=== PATIENT | female | born 1990 | race American Indian/Alaskan Native ===

== ENCOUNTER 2016-09-20 20:46 | Emergency (ER) | payer MEDICAID ==
[2016-09-20 21:00] VITALS: BP 116/71
[2016-09-20] MEDS ORDERED: Sodium Chloride 0.9% 10 ML Syringe FLUSH PRN (21:15)
[2016-09-20] MEDS ORDERED: Ketorolac 30 MG/ML SDV IM ONE (21:16)
--- NOTE | 2016-09-20 21:22 | EDM.PDOC ---
ED HPI GENERAL MEDICAL PROBLEM - General Chief Complaint: General Stated Complaint: RIB PAIN Time Seen by Provider: 09/20/16 21:00 Source of Information: Reports: Patient History Limitations: Reports: No Limitations - History of Present Illness INITIAL COMMENTS - FREE TEXT/NARRATIVE: Ludy is a 25 year old female who presents to the ED today with c/o bilateral rib pain of sudden onset earlier today with associated sob. Patient denies any cough/URI symptoms. Patient denies any abdominal pain, nausea/vomiting/diarrhea /dysuria/injury. Patient denies any hx of blood clots. Patient does smoke 1/2 ppd and does have an IUD. Patient reports that her pain today is similar to when she was as well as back in March when she had her gallbladder removed. Patient has not had anything for pain. 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: - Infectious Disease History Infectious Disease History: Reports: Chicken Pox - Past Surgical History GI Surgical History: Reports: Cholecystectomy Social & Family History - Family History Family Medical History: Unobtainable Cardiac: Reports: Bypass, Heart Failure, [place], Stent Psychiatric: Reports: Bipolar, Depression, Suicide Attempt - Tobacco Use Smoking Status *Q: Light Tobacco Smoker Years of Tobacco use: 8 Packs/Tins Daily: 0.5 Used Tobacco, but Quit: No Month Tobacco Last Used: August Second Hand Smoke Exposure: No - Caffeine Use Caffeine Use: Reports: Energy Drinks, Soda - Alcohol Use Days Per Week of Alcohol Use: 0 - Recreational Drug Use Recreational Drug Use: No - Living Situation & Occupation Living situation: Reports: Single Occupation: Employed ED ROS GENERAL - Review of Systems Review Of Systems: ROS reveals no pertinent complaints other than HPI. ED EXAM, GENERAL - Physical Exam Exam: See Below Exam Limited By: No Limitations General Appearance: Alert, WD/WN, Mild Distress Head: Atraumatic Neck: Normal Inspection, Full Range of Motion Respiratory/Chest: Lungs Clear, No Accessory Muscle Use, Other (bilateral anterior/side lower rib tenderness. Shallow respiration secondary to pain) Cardiovascular: Normal Peripheral Pulses, Regular Rate, Rhythm, No Murmur GI/Abdominal: Normal Bowel Sounds, Soft, Non-Tender Extremities: Normal Inspection Neurological: Alert, Oriented, CN II-XII Intact Psychiatric: Normal Affect, Normal Mood Skin Exam: Warm, Dry Lymphatic: No Adenopathy Course - Vital Signs Text/Narrative:: Ludy is an otherwise healthy 25 year old female who presents to the ED today with c/o bilateral lower anterior and side rib pain. Please refer to HPI and focused exam. Patient's presentation is consistent with inflammatory process. Patient given IM Toradol with good relief. Blood work including CBC, CMP, D Dimer are all within normal limits. CXR negative for any acute findings. Blood HCG negative. Patient states she is feeling much better after medication here. Findings today consistent with acute costochondritis. I discussed with patient, will start her on a 7 day course of Naproxen, discussed avoiding any other NSAIDS while she is on this. Follow up with PCP in one week. Return to the ED with any complications or worsening symptoms. Patient verbalizes understanding and is agreeable to plan of care. questions answered prior to discharge. Patient dishcarged in stable condition. Last Recorded V/S: Last Vital Signs Temp 36.6 C 09/20/16 21:03 Pulse 69 09/20/16 21:03 Resp 16 09/20/16 21:03 BP 116/71 09/20/16 21:03 Pulse Ox 99 09/20/16 21:03 - Orders/Labs/Meds Orders: Active Orders 24 hr Category Date Time Status Peripheral IV Care [RC] . DIRECTED Care 09/20/16 21:15 Active Chest 2V [CR] Stat Exams 09/20/16 21:58 Taken Sodium Chloride 0.9% [Saline Flush] Med 09/20/16 21:15 Active 10 ml FLUSH ASDIRECTED PRN Peripheral IV Insertion Pediatric [OM.PC] Routine Oth 09/20/16 21:15 Ordered Medication Orders Sodium Chloride (Saline Flush) 10 ml FLUSH ASDIRECTED PRN PRN Reason: Keep Vein Open Labs: Laboratory Tests 09/20/16 09/20/16 09/20/16 Range/Units 21:26 21:26 21:26 WBC 6.4 (4.5-11.0) K/uL RBC 4.39 (3.30-5.50) M/uL Hgb 13.4 D (12.0-15.0) g/dL Hct 39.9 (36.0-48.0) % MCV 91 (80-98) fL MCH 31 (27-31) pg MCHC 34 (32-36) % Plt Count 182 (150-400) K/uL Neut % (Auto) 59 (36-66) % Lymph % (Auto) 24 (24-44) % [place] % (Auto) 10 H (2-6) % Eos % (Auto) 6 H (2-4) % Baso % (Auto) 1 (0-1) % D-Dimer, Quantitative 339 (0.0-400.0) ng/mL Sodium 138 L (140-148) mmol/L Potassium 3.8 (3.6-5.2) mmol/L Chloride 105 (100-108) mmol/L Carbon Dioxide 26 (21-32) mmol/L Anion Gap 10.8 (5.0-14.0) mmol/L BUN 17 (7-18) mg/dL Creatinine 1.0 (0.6-1.0) mg/dL Est Cr Clr Drug Dosing 103.26 mL/min Estimated GFR (MDRD) > 60 (>60) Glucose 89 (74-106) mg/dL Calcium 8.0 L (8.5-10.1) mg/dL Total Bilirubin 0.2 D (0.2-1.0) mg/dL AST 12 L (15-37) U/L ALT 15 (12-78) U/L Alkaline Phosphatase 100 (46-116) U/L Total Protein 7.8 (6.4-8.2) g/dL Albumin 3.8 (3.4-5.0) g/dL Globulin 4.0 H (2.3-3.5) g/dL Albumin/Globulin Ratio 1.0 L (1.2-2.2) HCG, Qual 09/20/16 Range/Units 21:26 WBC (4.5-11.0) K/uL RBC (3.30-5.50) M/uL Hgb (12.0-15.0) g/dL Hct (36.0-48.0) % MCV (80-98) fL MCH (27-31) pg MCHC (32-36) % Plt Count (150-400) K/uL Neut % (Auto) (36-66) % Lymph % (Auto) (24-44) % [place] % (Auto) (2-6) % Eos % (Auto) (2-4) % Baso % (Auto) (0-1) % D-Dimer, Quantitative (0.0-400.0) ng/mL Sodium (140-148) mmol/L Potassium (3.6-5.2) mmol/L Chloride (100-108) mmol/L Carbon Dioxide (21-32) mmol/L Anion Gap (5.0-14.0) mmol/L BUN (7-18) mg/dL Creatinine (0.6-1.0) mg/dL Est Cr Clr Drug Dosing mL/min Estimated GFR (MDRD) (>60) Glucose (74-106) mg/dL Calcium (8.5-10.1) mg/dL Total Bilirubin (0.2-1.0) mg/dL AST (15-37) U/L ALT (12-78) U/L Alkaline Phosphatase (46-116) U/L Total Protein (6.4-8.2) g/dL Albumin (3.4-5.0) g/dL Globulin (2.3-3.5) g/dL Albumin/Globulin Ratio (1.2-2.2) HCG, Qual Negative Meds: Medications Generic Name Dose Route Start Last Admin Trade Name Freq PRN Reason Stop Dose Admin Sodium Chloride 10 ml 09/20/16 21:15 Saline Flush FLUSH ASDIRECTED PRN Keep Vein Open Discontinued Medications Generic Name Dose Route Start Last Admin Trade Name Freq PRN Reason Stop Dose Admin Ketorolac Tromethamine 30 mg 09/20/16 21:16 09/20/16 21:29 Toradol IM 09/20/16 21:17 30 mg ONETIME ONE Administration Departure - Departure Time of Disposition: 22:45 Disposition: Home, Self-Care 01 Condition: good Clinical Impression: Rib pain - Discharge Information Instructions: Costochondritis, [id number] Referrals: PCP,None [Primary Care Provider] - Forms: ED Department Discharge - My Orders Last 24 Hours: My Active Orders 09/20/16 21:15 Peripheral IV Care [RC] . DIRECTED Sodium Chloride 0.9% [Saline Flush] 10 ml FLUSH ASDIRECTED PRN Peripheral IV Insertion Pediatric [OM.PC] Routine 09/20/16 21:58 Chest 2V [CR] Stat - Assessment/Plan Last 24 Hours: My Active Orders 09/20/16 21:15 Peripheral IV Care [RC] . DIRECTED Sodium Chloride 0.9% [Saline Flush] 10 ml FLUSH ASDIRECTED PRN Peripheral IV Insertion Pediatric [OM.PC] Routine 09/20/16 21:58 Chest 2V [CR] Stat
--- NOTE | 2016-09-21 10:23 | CR ---
Heart size within normal limits. Pulmonary vasculature within normal limits. No focal consolidation.
== END 2016-09-20 22:54 | disposition home or self-care (01) ==
LOC: JP.ED 20:46
DX: R07.81 Pleurodynia (principal); F17.210 Nicotine dependence, cigarettes, uncomplicated; Z88.1 Allergy status to other antibiotic agents; Z79.899 Other long term (current) drug therapy; Z90.49 Acquired absence of other specified parts of digestive tract
CPT/HCPCS: 36415; 71020; 80053; 84703; 85025; 85379; 96372; 99284; J1885; 99283

== ENCOUNTER 2018-06-09 15:21 | Observation (INO) | payer MEDICAID ==
[2018-06-09] MEDS ORDERED: Lactated Ringers 1,000 ML IV ONE (15:51)
[2018-06-09] MEDS ORDERED: Lactated Ringers 1,000 ML IV SCH (16:00)
[2018-06-09] MEDS ORDERED: Docusate Sodium 100 MG Cap PO PRN (17:59)
[2018-06-09] MEDS ORDERED: hydrOXYzine HCl 25 MG Tab PO PRN (17:59)
[2018-06-09] MEDS ORDERED: Ondansetron 4 MG/2 ML SDV IV PRN (17:59)
[2018-06-09] MEDS ORDERED: Acetaminophen 325 MG Tab PO PRN (17:59)
[2018-06-09] MEDS ORDERED: cefTRIAXone 2 GM in Sodium Chloride 0.9% 50 ML IV SCH ×2 (18:30→20:00)
[2018-06-09] MEDS: Sodium Chloride 0.9% 1,000 ML IV SCH (19:28)
[2018-06-10] MEDS: Sodium Chloride 0.9% 1,000 ML IV SCH (04:15)
--- NOTE | 2018-06-10 08:23 | PCM.LDHP ---
L&D History of Present Illness - General Date of Service: 06/09/18 (Dehydration) Admit Problem/Dx: Patient Status Order with Admit Dx/Problem 06/09/18 17:59 Patient Status [ADT] Routine Admission Diagnosis/Problem Admission Diagnosis/Problem - Related Data Allergies/Adverse Reactions: Allergies Allergy/AdvReac Type Severity Reaction Status Date / Time azithromycin [From Zithromax] Allergy Severe Other Verified 09/20/16 21:05 Home Medications: Home Meds Multivitamin [Multivitamins] 1 tab PO DAILY 04/09/16 [History] Nitrofurantoin Monohyd/M-Cryst [Macrobid 100 mg Capsule] 100 mg PO BID 5 Days # 10 capsule 06/08/18 [Rx] Past Medical History - Past Health History Medical/Surgical History: Denies 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: - Infectious Disease History Infectious Disease History: Reports: Chicken Pox - Past Surgical History GI Surgical History: Reports: Cholecystectomy Social & Family History - Family History Family Medical History: Unobtainable Cardiac: Reports: Bypass, Heart Failure, [place], Stent Psychiatric: Reports: Bipolar, Depression, Suicide Attempt - Tobacco Use Smoking Status *Q: Current Every Day Smoker Years of Tobacco use: 8 Packs/Tins Daily: 0.5 Used Tobacco, but Quit: No Second Hand Smoke Exposure: Yes - Caffeine Use Caffeine Use: Reports: Soda - Recreational Drug Use Recreational Drug Use: No - Living Situation & Occupation Living situation: Reports: Single Occupation: Employed H&P Review of Systems - Review of Systems: Review Of Systems: See Below General: Reports: Fever, Chills, Weakness, Fatigue, Decreased Appetite HEENT: Reports: Headaches Pulmonary: Reports: No Symptoms Cardiovascular: Reports: No Symptoms Gastrointestinal: Reports: Abdominal Pain, Diarrhea, Nausea, Vomiting Genitourinary: Reports: Dysuria, Frequency, Burning, Pain, Urgency, Flank Pain Musculoskeletal: Reports: No Symptoms Skin: Reports: No Symptoms Psychiatric: Reports: No Symptoms Neurological: Reports: No Symptoms Hematologic/Lymphatic: Reports: No Symptoms Immunologic: Reports: No Symptoms L&D Exam - Exam Exam: See Below - Vital Signs Vital Signs: Last Vital Signs Temp 36.4 C 06/10/18 07:17 Pulse 77 06/10/18 07:17 Resp 17 06/10/18 07:17 BP 130/53 L 06/10/18 07:17 Pulse Ox 98 06/10/18 07:17 Weight: 93.894 kg - OB Specific Contraction Duration (sec): 50-60 Contraction Frequency (min): none Contraction Intensity: Irritability - Exam General: Alert, Oriented HEENT: PERRLA, Conjunctiva Clear, EACs Clear, EOMI, Hearing Intact, Mucosa Moist & Noonday, Nares Patent, Normal Nasal Septum, Posterior Pharynx Clear, TMs Clear Neck: Supple, Trachea Midline Lungs: Clear to Auscultation, Normal Respiratory Effort Cardiovascular: Regular Rate, Regular Rhythm GI/Abdominal Exam: Normal Bowel Sounds, Soft, No Organomegaly, No Distention, No Mass, Tender (suprapubic) Rectal Exam: Normal Exam, Normal Rectal Tone Genitourinary: Normal external exam Back Exam: Normal Inspection, Full Range of Motion, CVA Tenderness (L) Extremities: Normal Inspection, Normal Range of Motion, Non-Tender, No Pedal Edema, Normal Capillary Refill Skin: Warm, Dry, Intact Neurological: Cranial Nerves Intact, Reflexes Equal Bilateral Psychiatric: Alert, Normal Affect, Normal Mood - Patient Data Lab Results Last 24 hrs: Laboratory Results - last 24 hr 06/09/18 06/09/18 06/09/18 Range/Units 15:44 18:00 18:00 WBC 11.1 H (4.5-11.0) K/uL RBC 4.00 (3.30-5.50) M/uL Hgb 12.0 (12.0-15.0) g/dL Hct 36.9 (36.0-48.0) % MCV 92 (80-98) fL MCH 30 (27-31) pg MCHC 33 (32-36) % Plt Count 233 (150-400) K/uL Neut % (Auto) 87 H (36-66) % Lymph % (Auto) 7 L (24-44) % [place] % (Auto) 6 (2-6) % Eos % (Auto) 1 L (2-4) % Baso % (Auto) 0 (0-1) % Sodium 136 L (140-148) mmol/L Potassium 3.6 (3.6-5.2) mmol/L Chloride 101 (100-108) mmol/L Carbon Dioxide 24 (21-32) mmol/L Anion Gap 14.6 H (5.0-14.0) mmol/L BUN 5 L (7-18) mg/dL Creatinine 0.7 (0.6-1.0) mg/dL Est Cr Clr Drug Dosing 144.96 mL/min Estimated GFR (MDRD) > 60 (>60) Glucose 70 L (74-106) mg/dL Calcium 8.7 (8.5-10.1) mg/dL Total Bilirubin 0.6 (0.2-1.0) mg/dL AST 25 (15-37) U/L ALT 40 (12-78) U/L Alkaline Phosphatase 176 H (46-116) U/L Total Protein 7.3 (6.4-8.2) g/dL Albumin 2.6 L (3.4-5.0) g/dL Globulin 4.7 H (2.3-3.5) g/dL Albumin/Globulin Ratio 0.6 L (1.2-2.2) Urine Color Yellow Urine Appearance Slightly cloudy Urine pH 6.0 (4.5-8.0) Ur Specific [place] 1.015 (1.008-1.030) Urine Protein Trace (NEGATIVE) mg/dL Urine Glucose (UA) Normal (NEGATIVE) mg/dL Urine Ketones 150 H (NEGATIVE) mg/dL Urine Occult Blood Trace (NEGATIVE) Urine Nitrite Positive H (NEGATIVE) Urine Bilirubin Negative (NEGATIVE) Urine Urobilinogen Normal (NORMAL) mg/dL Ur Leukocyte Esterase Moderate (NEGATIVE) Urine RBC 0-5 (0-5) Urine WBC 10-20 H (0-5) Ur Epithelial Cells Many Amorphous Sediment Not seen Urine Bacteria Many Urine Mucus Not seen 06/10/18 Range/Units 07:49 WBC (4.5-11.0) K/uL RBC (3.30-5.50) M/uL Hgb (12.0-15.0) g/dL Hct (36.0-48.0) % MCV (80-98) fL MCH (27-31) pg MCHC (32-36) % Plt Count (150-400) K/uL Neut % (Auto) (36-66) % Lymph % (Auto) (24-44) % [place] % (Auto) (2-6) % Eos % (Auto) (2-4) % Baso % (Auto) (0-1) % Sodium (140-148) mmol/L Potassium (3.6-5.2) mmol/L Chloride (100-108) mmol/L Carbon Dioxide (21-32) mmol/L Anion Gap (5.0-14.0) mmol/L BUN (7-18) mg/dL Creatinine (0.6-1.0) mg/dL Est Cr Clr Drug Dosing mL/min Estimated GFR (MDRD) (>60) Glucose (74-106) mg/dL Calcium (8.5-10.1) mg/dL Total Bilirubin (0.2-1.0) mg/dL AST (15-37) U/L ALT (12-78) U/L Alkaline Phosphatase (46-116) U/L Total Protein (6.4-8.2) g/dL Albumin (3.4-5.0) g/dL Globulin (2.3-3.5) g/dL Albumin/Globulin Ratio (1.2-2.2) Urine Color Yellow Urine Appearance Clear Urine pH 5.0 (4.5-8.0) Ur Specific [place] 1.015 (1.008-1.030) Urine Protein Negative (NEGATIVE) mg/dL Urine Glucose (UA) Normal (NEGATIVE) mg/dL Urine Ketones Negative (NEGATIVE) mg/dL Urine Occult Blood Negative (NEGATIVE) Urine Nitrite Negative (NEGATIVE) Urine Bilirubin Negative (NEGATIVE) Urine Urobilinogen Normal (NORMAL) mg/dL Ur Leukocyte Esterase Small (NEGATIVE) Urine RBC 0-5 (0-5) Urine WBC 10-20 H (0-5) Ur Epithelial Cells Many Amorphous Sediment Few Urine Bacteria Few Urine Mucus Not seen Result Diagrams: 06/09/18 18:00 06/09/18 18:00 Jan Results Last 24 hrs: Microbiology 06/09/18 21:21 Clostridium difficile (PCR) - Final Stool / Feces NEGATIVE CDIFF TOXIN - Problem List (1) SNOMED Code(s): 08911427 ICD Code: Z34.90 - ENCNTR FOR SUPRVSN OF NORMAL , UNSP, UNSP TRIMESTER Status: Acute Priority: High Current Visit: Yes Qualifiers: Weeks of gestation: 32 weeks Qualified Code(s): Z3A.32 - 32 weeks gestation of (2) Dehydration during SNOMED Code(s): 57615324 ICD Code: O26.899 - OTH RELATED CONDITIONS, UNSPECIFIED TRIMESTER; E86.0 - DEHYDRATION Status: Acute Priority: High Current Visit: Yes (3) Diarrhea SNOMED Code(s): 59019444 ICD Code: R19.7 - DIARRHEA, UNSPECIFIED Status: Acute Priority: Medium Current Visit: Yes (4) Suprapubic abdominal pain SNOMED Code(s): 201903994 ICD Code: R10.2 - PELVIC AND PERINEAL PAIN Status: Acute Priority: Medium Current Visit: Yes (5) UTI (urinary tract infection) during SNOMED Code(s): 747690028 ICD Code: O23.40 - UNSP INFECTION OF URINARY TRACT IN , UNSP TRIMESTER Status: Acute Priority: High Current Visit: Yes Qualifiers: Trimester: third trimester Qualified Code(s): O23.43 - Unspecified infection of urinary tract in , third trimester Problem List Initiated/Reviewed/Updated: Yes Orders Last 24hrs: Active Orders 24 hr Category Date Time Status Patient Status [ADT] Routine ADT 06/09/18 17:59 Active Ambulate [RC] PER UNIT ROUTINE Care 06/09/18 17:59 Active Dietary Supplements [RC] BIDMEALS Care 06/09/18 18:04 Active Heart Tones [RC] INTERMITTENT Care 06/09/18 18:00 Active Intake and Output [RC] PRN Care 06/09/18 17:59 Active May Shower [RC] ASDIRECTED Care 06/09/18 17:59 Active Notify Provider [RC] PRN Care 06/09/18 17:59 Active OB Check [OM.PC] Click to Edit Care 06/09/18 15:44 Ordered Up ad Areli [RC] ASDIRECTED Care 06/09/18 17:59 Active VTE/DVT Education [RC] Click to Edit Care 06/09/18 18:01 Active Vital Signs [RC] PER UNIT ROUTINE Care 06/09/18 17:59 Active Regular Diet [DIET] Diet 06/09/18 Breakfast Active CULTURE URINE [RM] Routine Lab 06/09/18 16:00 Received UA W/MICROSCOPIC [URIN] Routine Lab 06/10/18 07:49 Results Acetaminophen [Tylenol] Med 06/09/18 17:59 Active 650 mg PO Q4H PRN Docusate Sodium [Colace] Med 06/09/18 17:59 Active 100 mg PO Q12H PRN Ondansetron [Zofran] Med 06/09/18 17:59 Active 4 mg IV Q4H PRN Sodium Chloride 0.9% [Normal Saline] 1,000 ml Med 06/09/18 18:00 Active IV ASDIRECTED cefTRIAXone [Rocephin] 2 gm Med 06/09/18 20:00 Active Sodium Chloride 0.9% [Normal Saline] 50 ml IV Q24H hydrOXYzine HCl [Atarax] Med 06/09/18 17:59 Active 50 mg PO BEDTIME PRN DVT/VTE Prophylaxis Reflex [OM.PC] Routine Oth 06/09/18 17:59 Ordered Resuscitation Status Routine Resus Stat 06/09/18 17:59 Ordered Medication Orders Acetaminophen (Tylenol) 650 mg PO Q4H PRN PRN Reason: mild pain and fever Docusate Sodium (Colace) 100 mg PO Q12H PRN PRN Reason: Constipation Hydroxyzine HCl (Atarax) 50 mg PO BEDTIME PRN PRN Reason: Sleep Last Admin: 06/10/18 00:18 Dose: 50 mg Sodium Chloride (Normal Saline) 1,000 mls @ 125 mls/hr IV ASDIRECTED [facility] Last Admin: 06/10/18 04:15 Dose: 125 mls/hr Infusion: 06/10/18 03:28 Dose: 125 mls/hr Admin: 06/09/18 19:28 Dose: 125 mls/hr Ceftriaxone Sodium 2 gm/ (Sodium Chloride) 50 mls @ 100 mls/hr IV Q24H [facility] Last Admin: 06/09/18 20:17 Dose: 100 mls/hr Ondansetron HCl (Zofran) 4 mg IV Q4H PRN PRN Reason: Nausea/Vomiting Assessment/Plan Comment:: 06/09/2018 27 yo here at 32 6/7 weeks gestation with severe dehydration for a UTI in . She had been in the night before to labor and delivery with profuse suprapubic abdominal pain and was found to have a UTI. She states she went back home and then started vomiting, diarrhea and could not keep any liquids down so she came back in today. Ketones 150+ in her urine and now nitrates also Vomiting/diarrhea UTI Dehydration Plan- Admit patient for hydration over night IV fluid bolus then 125ml/hour IV rocephin 2grams now Can have zofran and tylenol as needed Can have Vistaril 50mg to sleep tonight May intermittent monitor FHTs with vital signs I&O If believe she is having more pain or contractions place on continuous monitoring CBC, CMP now
--- NOTE | 2018-06-10 08:28 | PCM.PN ---
- General Info Date of Service: 06/10/18 (UTI in ) - Review of Systems General: Reports: Weakness, Fatigue HEENT: Reports: No Symptoms Pulmonary: Reports: No Symptoms Cardiovascular: Reports: No Symptoms Gastrointestinal: Reports: Abdominal Pain (less today), Diarrhea (less today) Genitourinary: Reports: Pain Musculoskeletal: Reports: No Symptoms Skin: Reports: No Symptoms Neurological: Reports: No Symptoms Psychiatric: Reports: No Symptoms - Patient Data Vitals - Most Recent: Last Vital Signs Temp 36.4 C 06/10/18 07:17 Pulse 77 06/10/18 07:17 Resp 17 06/10/18 07:17 BP 130/53 L 06/10/18 07:17 Pulse Ox 98 06/10/18 07:17 Weight - Most Recent: 93.894 kg I&O - Last 24 Hours: Intake & Output 06/09/18 06/10/18 06/10/18 22:59 06:59 14:59 Intake Total 2053 Output Total 400 Balance -400 3 Lab Results Last 24 Hours: Laboratory Results - last 24 hr 06/09/18 06/09/18 06/09/18 Range/Units 15:44 18:00 18:00 WBC 11.1 H (4.5-11.0) K/uL RBC 4.00 (3.30-5.50) M/uL Hgb 12.0 (12.0-15.0) g/dL Hct 36.9 (36.0-48.0) % MCV 92 (80-98) fL MCH 30 (27-31) pg MCHC 33 (32-36) % Plt Count 233 (150-400) K/uL Neut % (Auto) 87 H (36-66) % Lymph % (Auto) 7 L (24-44) % [place] % (Auto) 6 (2-6) % Eos % (Auto) 1 L (2-4) % Baso % (Auto) 0 (0-1) % Sodium 136 L (140-148) mmol/L Potassium 3.6 (3.6-5.2) mmol/L Chloride 101 (100-108) mmol/L Carbon Dioxide 24 (21-32) mmol/L Anion Gap 14.6 H (5.0-14.0) mmol/L BUN 5 L (7-18) mg/dL Creatinine 0.7 (0.6-1.0) mg/dL Est Cr Clr Drug Dosing 144.96 mL/min Estimated GFR (MDRD) > 60 (>60) Glucose 70 L (74-106) mg/dL Calcium 8.7 (8.5-10.1) mg/dL Total Bilirubin 0.6 (0.2-1.0) mg/dL AST 25 (15-37) U/L ALT 40 (12-78) U/L Alkaline Phosphatase 176 H (46-116) U/L Total Protein 7.3 (6.4-8.2) g/dL Albumin 2.6 L (3.4-5.0) g/dL Globulin 4.7 H (2.3-3.5) g/dL Albumin/Globulin Ratio 0.6 L (1.2-2.2) Urine Color Yellow Urine Appearance Slightly cloudy Urine pH 6.0 (4.5-8.0) Ur Specific [place] 1.015 (1.008-1.030) Urine Protein Trace (NEGATIVE) mg/dL Urine Glucose (UA) Normal (NEGATIVE) mg/dL Urine Ketones 150 H (NEGATIVE) mg/dL Urine Occult Blood Trace (NEGATIVE) Urine Nitrite Positive H (NEGATIVE) Urine Bilirubin Negative (NEGATIVE) Urine Urobilinogen Normal (NORMAL) mg/dL Ur Leukocyte Esterase Moderate (NEGATIVE) Urine RBC 0-5 (0-5) Urine WBC 10-20 H (0-5) Ur Epithelial Cells Many Amorphous Sediment Not seen Urine Bacteria Many Urine Mucus Not seen 06/10/18 Range/Units 07:49 WBC (4.5-11.0) K/uL RBC (3.30-5.50) M/uL Hgb (12.0-15.0) g/dL Hct (36.0-48.0) % MCV (80-98) fL MCH (27-31) pg MCHC (32-36) % Plt Count (150-400) K/uL Neut % (Auto) (36-66) % Lymph % (Auto) (24-44) % [place] % (Auto) (2-6) % Eos % (Auto) (2-4) % Baso % (Auto) (0-1) % Sodium (140-148) mmol/L Potassium (3.6-5.2) mmol/L Chloride (100-108) mmol/L Carbon Dioxide (21-32) mmol/L Anion Gap (5.0-14.0) mmol/L BUN (7-18) mg/dL Creatinine (0.6-1.0) mg/dL Est Cr Clr Drug Dosing mL/min Estimated GFR (MDRD) (>60) Glucose (74-106) mg/dL Calcium (8.5-10.1) mg/dL Total Bilirubin (0.2-1.0) mg/dL AST (15-37) U/L ALT (12-78) U/L Alkaline Phosphatase (46-116) U/L Total Protein (6.4-8.2) g/dL Albumin (3.4-5.0) g/dL Globulin (2.3-3.5) g/dL Albumin/Globulin Ratio (1.2-2.2) Urine Color Yellow Urine Appearance Clear Urine pH 5.0 (4.5-8.0) Ur Specific [place] 1.015 (1.008-1.030) Urine Protein Negative (NEGATIVE) mg/dL Urine Glucose (UA) Normal (NEGATIVE) mg/dL Urine Ketones Negative (NEGATIVE) mg/dL Urine Occult Blood Negative (NEGATIVE) Urine Nitrite Negative (NEGATIVE) Urine Bilirubin Negative (NEGATIVE) Urine Urobilinogen Normal (NORMAL) mg/dL Ur Leukocyte Esterase Small (NEGATIVE) Urine RBC 0-5 (0-5) Urine WBC 10-20 H (0-5) Ur Epithelial Cells Many Amorphous Sediment Few Urine Bacteria Few Urine Mucus Not seen Jan Results Last 24 Hours: Microbiology 06/09/18 21:21 Clostridium difficile (PCR) - Final Stool / Feces NEGATIVE CDIFF TOXIN Med Orders - Current: Current Medications Acetaminophen (Tylenol) 650 mg PO Q4H PRN PRN Reason: mild pain and fever Docusate Sodium (Colace) 100 mg PO Q12H PRN PRN Reason: Constipation Hydroxyzine HCl (Atarax) 50 mg PO BEDTIME PRN PRN Reason: Sleep Last Admin: 06/10/18 00:18 Dose: 50 mg Sodium Chloride (Normal Saline) 1,000 mls @ 125 mls/hr IV ASDIRECTED [facility] Last Admin: 06/10/18 04:15 Dose: 125 mls/hr Ceftriaxone Sodium 2 gm/ (Sodium Chloride) 50 mls @ 100 mls/hr IV Q24H [facility] Last Admin: 06/09/18 20:17 Dose: 100 mls/hr Ondansetron HCl (Zofran) 4 mg IV Q4H PRN PRN Reason: Nausea/Vomiting Discontinued Medications Lactated Ringer's (Ringers, Lactated) 1,000 mls @ 999 mls/hr IV BOLUS ONE Stop: 06/09/18 16:51 Last Admin: 06/09/18 16:20 Dose: 999 mls/hr Lactated Ringer's (Ringers, Lactated) 1,000 mls @ 125 mls/hr IV ASDIRECTED [facility] Ceftriaxone Sodium 2 gm/ (Sodium Chloride) 50 mls @ 100 mls/hr IV Q24H [facility] Last Admin: 06/09/18 19:33 Dose: Not Given - Exam General: Alert, Oriented HEENT: Pupils Equal, Pupils Reactive, EOMI, Mucous Membr. Moist/[place] Neck: Supple Lungs: Clear to Auscultation, Normal Respiratory Effort Cardiovascular: Regular Rate, Regular Rhythm GI/Abdominal Exam: Normal Bowel Sounds, Soft, Non-Tender, No Organomegaly, No Distention, No Abnormal Bruit, No Mass (Female) Exam: Normal External Exam, Other (gravid ) Back Exam: Normal Inspection, Full Range of Motion Extremities: Normal Inspection, Normal Range of Motion, Non-Tender, No Pedal Edema, Normal Capillary Refill Skin: Warm, Dry, Intact Neurological: No New Focal Deficit Psy/Mental Status: Alert, Normal Affect, Normal Mood - Problem List & Annotations (1) SNOMED Code(s): 64305047 Code(s): Z34.90 - ENCNTR FOR SUPRVSN OF NORMAL , UNSP, UNSP TRIMESTER Status: Acute Priority: High Current Visit: Yes Qualifiers: Weeks of gestation: 32 weeks Qualified Code(s): Z3A.32 - 32 weeks gestation of (2) Dehydration during SNOMED Code(s): 20659599 Code(s): O26.899 - OTH RELATED CONDITIONS, UNSPECIFIED TRIMESTER; E86.0 - DEHYDRATION Status: Acute Priority: High Current Visit: Yes (3) Diarrhea SNOMED Code(s): 71202466 Code(s): R19.7 - DIARRHEA, UNSPECIFIED Status: Acute Priority: Medium Current Visit: Yes (4) Suprapubic abdominal pain SNOMED Code(s): 912269443 Code(s): R10.2 - PELVIC AND PERINEAL PAIN Status: Acute Priority: Medium Current Visit: Yes (5) UTI (urinary tract infection) during SNOMED Code(s): 089831297 Code(s): O23.40 - UNSP INFECTION OF URINARY TRACT IN , UNSP TRIMESTER Status: Acute Priority: High Current Visit: Yes Qualifiers: Trimester: third trimester Qualified Code(s): O23.43 - Unspecified infection of urinary tract in , third trimester - Problem List Review Problem List Initiated/Reviewed/Updated: Yes - My Orders Last 24 Hours: My Active Orders 06/09/18 15:44 OB Check [OM.PC] Click to Edit 06/09/18 16:00 CULTURE URINE [RM] Routine 06/09/18 17:59 Patient Status [ADT] Routine Ambulate [RC] PER UNIT ROUTINE Intake and Output [RC] PRN May Shower [RC] ASDIRECTED Notify Provider [RC] PRN Up ad Areli [RC] ASDIRECTED Vital Signs [RC] PER UNIT ROUTINE Acetaminophen [Tylenol] 650 mg PO Q4H PRN Docusate Sodium [Colace] 100 mg PO Q12H PRN Ondansetron [Zofran] 4 mg IV Q4H PRN hydrOXYzine HCl [Atarax] 50 mg PO BEDTIME PRN DVT/VTE Prophylaxis Reflex [OM.PC] Routine Resuscitation Status Routine 06/09/18 18:00 Heart Tones [RC] INTERMITTENT Sodium Chloride 0.9% [Normal Saline] 1,000 ml IV ASDIRECTED 06/09/18 18:01 VTE/DVT Education [RC] Click to Edit 06/09/18 18:04 Dietary Supplements [RC] BIDMEALS 06/09/18 20:00 cefTRIAXone [Rocephin] 2 gm Sodium Chloride 0.9% [Normal Saline] 50 ml IV Q24H 06/09/18 Breakfast Regular Diet [DIET] 06/10/18 07:49 UA W/MICROSCOPIC [URIN] Routine - Assessment Assessment:: 06/10/2018 Normal Female 32 6/7 gestational weeks UTI Dehydration Diarrhea Urine no ketones today Eating regular diet Happy and feeling better - Plan Plan:: 06/09/2018 27 yo here at 32 5/7 weeks gestation with severe dehydration for a UTI in . She had been in the night before to labor and delivery with profuse suprapubic abdominal pain and was found to have a UTI. She states she went back home and then started vomiting, diarrhea and could not keep any liquids down so she came back in today. Ketones 150+ in her urine and now nitrates also Vomiting/diarrhea UTI Dehydration Plan- Admit patient for hydration over night IV fluid bolus then 125ml/hour IV rocephin 2grams now Can have zofran and tylenol as needed Can have Vistaril 50mg to sleep tonight May intermittent monitor FHTs with vital signs I&O If believe she is having more pain or contractions place on continuous monitoring CBC, CMP now 06/10/2018 Continue to do IV fluids 125ml/hr Patient can d/c home later this afternoon To see me in the clinic on Tuesday for OB Check and follow up Resume macrobid Zofran for nausea Vistaril for sleep
[2018-06-10 11:03] VITALS: BP 126/79
== END 2018-06-10 12:16 | disposition home or self-care (01) ==
LOC: JP.OBCHECK 15:21 → JP.OB 15:25 → UNDOADMOB 15:25 → JP.MS 17:59 → JP.OB 19:08 → JP.MS 19:08
PROVIDERS: ADMIT Advanced Practice Midwife; ATTEND Advanced Practice Midwife
DX: O99.283 Endocrine, nutritional and metabolic diseases complicating pregnancy, third trimester (principal); E86.0 Dehydration; O23.43 Unspecified infection of urinary tract in pregnancy, third trimester; O99.89 Other specified diseases and conditions complicating pregnancy, childbirth and the puerperium; R19.7 Diarrhea, unspecified; O99.333 Smoking (tobacco) complicating pregnancy, third trimester; F17.200 Nicotine dependence, unspecified, uncomplicated; Z3A.32 32 weeks gestation of pregnancy
CPT/HCPCS: 36415; 80053; 81001; 85025; 87086; 87493; 99211; A9270; J0696; J7030; J7050; J7120; 96361; 96365; G0378

== ENCOUNTER 2018-07-24 06:43 | Inpatient (IN) | payer MEDICAID ==
[2018-07-24] MEDS ORDERED: Misoprostol 50 MCG (1/2 of 100 MCG) Tab VAG ONE (06:50)
[2018-07-24] MEDS ORDERED: Sodium Chloride 0.9% 10 ML Syringe FLUSH PRN (08:27)
[2018-07-24] MEDS ORDERED: fentaNYL 100 MCG/2 ML SDV IVPUSH PRN (08:27)
[2018-07-24] MEDS ORDERED: Acetaminophen 325 MG Tab PO PRN (08:27)
[2018-07-24] MEDS ORDERED: Ondansetron 4 MG Tab.DIS PO PRN (08:27)
--- NOTE | 2018-07-24 08:38 | PCM.LDHP ---
L&D History of Present Illness - General Date of Service: 07/24/18 (induction, previous trauma) Admit Problem/Dx: Patient Status Order with Admit Dx/Problem 07/24/18 08:27 Patient Status [ADT] Routine Admission Diagnosis/Problem Admission Diagnosis/Problem Elective induction of labor planned Source of Information: Patient History Limitations: Reports: No Limitations - History of Present Illness Introduction:: This 27 year old who is 39 4/7 weeks. Presents for elective induction. Previous large baby with vaginal tear. requested induction before 40 weeks. ABO O pos, HIV neg, Rubella immune, GBS POSITIVE Timing/Duration: Reports: minutes: (5-8) Location, : Reports: Abdomen Severity: Mild Improves with: Reports: None Worsens with: Reports: None - Related Data Allergies/Adverse Reactions: Allergies Allergy/AdvReac Type Severity Reaction Status Date / Time azithromycin [From Zithromax] Allergy Severe Other Verified 07/24/18 07:38 Home Medications: Home Meds Multivitamin [Multivitamins] 1 tab PO DAILY 04/09/16 [History] Nitrofurantoin Monohyd/M-Cryst [Macrobid 100 mg Capsule] 100 mg PO BID 5 Days # 10 capsule 06/10/18 [Rx] Ondansetron [Zofran ODT] 4 mg PO Q6H PRN #30 tab.dis 06/10/18 [Rx] hydrOXYzine HCl [hydrOXYzine] 50 mg PO BEDTIME PRN #20 tablet 06/10/18 [Rx] Past Medical History - Past Health History Medical/Surgical History: Denies 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/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: Reports: : 2 Para: 1 LMP (Approximate): (RAZIA 07/27/18) - Infectious Disease History Infectious Disease History: Reports: Chicken Pox - Past Surgical History GI Surgical History: Reports: Cholecystectomy Social & Family History - Family History Family Medical History: Unobtainable Cardiac: Reports: Bypass, Heart Failure, [place], Stent Psychiatric: Reports: Bipolar, Depression, Suicide Attempt - Tobacco Use Smoking Status *Q: Current Every Day Smoker Years of Tobacco use: 8 Packs/Tins Daily: 0.5 Used Tobacco, but Quit: No Second Hand Smoke Exposure: No - Caffeine Use Caffeine Use: Reports: Coffee, Soda - Recreational Drug Use Recreational Drug Use: No - Living Situation & Occupation Living situation: Reports: Single Occupation: Employed H&P Review of Systems - Review of Systems: Review Of Systems: See Below General: Reports: No Symptoms HEENT: Reports: No Symptoms Pulmonary: Reports: No Symptoms Cardiovascular: Reports: No Symptoms Gastrointestinal: Reports: No Symptoms Genitourinary: Reports: No Symptoms Musculoskeletal: Reports: No Symptoms Skin: Reports: No Symptoms Psychiatric: Reports: No Symptoms Neurological: Reports: No Symptoms Hematologic/Lymphatic: Reports: No Symptoms Immunologic: Reports: No Symptoms L&D Exam - Exam Exam: See Below - Vital Signs Vital Signs: Last Vital Signs Temp 97.1 F 07/24/18 07:30 Pulse 90 07/24/18 07:30 Resp 16 07/24/18 07:30 BP 129/72 07/24/18 07:30 Pulse Ox 99 07/24/18 07:30 - OB Specific Contraction Duration (sec): 50-60 Contraction Frequency (min): x3 Contraction Intensity: Mild Movement: Active Heart Tones: Present Heart Tones per Min: 150 Heart Rate (FHR) Variability: Moderate (6-25 bmp) Presentation: Vertex - Matthew Score Matthew Score Cervix Position: Posterior Matthew Score Consistency: Soft Matthew Score Effacement: >80% Matthew Score Dilation: 1-2 cm Matthew Score Infant's Station: -1 ,0 Matthew Score Total: 8 - Exam General: Alert, Oriented HEENT: PERRLA, Conjunctiva Clear, Pupils Equal, Pupils Reactive Neck: Supple Lungs: Clear to Auscultation, Normal Respiratory Effort Cardiovascular: Regular Rate, Regular Rhythm GI/Abdominal Exam: Soft Rectal Exam: Normal Exam Genitourinary: Cervical dilitation, Enlarged uterus Back Exam: Normal Inspection, Full Range of Motion Extremities: Normal Inspection, No Pedal Edema Skin: Warm Neurological: Cranial Nerves Intact Psychiatric: Alert, Normal Affect, Normal Mood - Patient Data Lab Results Last 24 hrs: Laboratory Results - last 24 hr 07/24/18 07/24/18 07/24/18 Range/Units 06:49 06:49 06:50 WBC 11.1 H (4.5-11.0) K/uL RBC 4.31 (3.30-5.50) M/uL Hgb 12.7 (12.0-15.0) g/dL Hct 39.4 (36.0-48.0) % MCV 91 (80-98) fL MCH 30 (27-31) pg MCHC 32 (32-36) % Plt Count 229 (150-400) K/uL Neut % (Auto) 75 H (36-66) % Lymph % (Auto) 16 L (24-44) % [place] % (Auto) 7 H (2-6) % Eos % (Auto) 2 (2-4) % Baso % (Auto) 0 (0-1) % Urine Color Yellow Urine Appearance Cloudy Urine pH 5.0 (4.5-8.0) Ur Specific [place] 1.020 (1.008-1.030) Urine Protein Trace (NEGATIVE) mg/dL Urine Glucose (UA) Normal (NEGATIVE) mg/dL Urine Ketones Negative (NEGATIVE) mg/dL Urine Occult Blood Negative (NEGATIVE) Urine Nitrite Negative (NEGATIVE) Urine Bilirubin Negative (NEGATIVE) Urine Urobilinogen Normal (NORMAL) mg/dL Ur Leukocyte Esterase Moderate (NEGATIVE) Urine RBC 0-5 (0-5) Urine WBC 20-30 H (0-5) Ur Epithelial Cells Many Amorphous Sediment Not seen Urine Bacteria Many Urine Mucus Moderate Urine Opiates Screen Negative (NEGATIVE) Ur Oxycodone Screen Negative (NEGATIVE) Urine Methadone Screen Negative (NEGATIVE) Ur Propoxyphene Screen Negative (NEGATIVE) Ur Barbiturates Screen Negative (NEGATIVE) Ur Tricyclics Screen Negative (NEGATIVE) Ur Phencyclidine Scrn Negative (NEGATIVE) Ur Amphetamine Screen Negative (NEGATIVE) U Methamphetamines Scrn Negative (NEGATIVE) Urine MDMA Screen Negative (NEGATIVE) U Benzodiazepines Scrn Negative (NEGATIVE) U Cocaine Metab Screen Negative (NEGATIVE) U Marijuana (THC) Screen Negative (NEGATIVE) Result Diagrams: 07/24/18 06:49 - Problem List (1) Elective induction of labor planned SNOMED Code(s): 868949901 ICD Code: [id number] - Status: Acute Current Visit: Yes (2) SNOMED Code(s): 36806650 ICD Code: Z34.90 - ENCNTR FOR SUPRVSN OF NORMAL , UNSP, UNSP TRIMESTER Status: Acute Priority: High Current Visit: No Qualifiers: Weeks of gestation: 39 weeks Qualified Code(s): Z3A.39 - 39 weeks gestation of Problem List Initiated/Reviewed/Updated: Yes Orders Last 24hrs: Active Orders 24 hr Category Date Time Status Patient Status [ADT] Routine ADT 07/24/18 08:27 Ordered Antiembolic Devices [RC] .Routine Care 07/24/18 08:29 Ordered Communication Order [RC] ASDIRECTED Care 07/24/18 08:27 Ordered Heart Tones [RC] PER UNIT ROUTINE Care 07/24/18 08:27 Ordered Non Stress Test [RC] Click to Edit Care 07/24/18 08:27 Ordered May Shower [RC] ASDIRECTED Care 07/24/18 08:27 Ordered Notify Provider Vital Signs [RC] PRN Care 07/24/18 08:27 Ordered Notify Provider [RC] PRN Care 07/24/18 08:27 Ordered Up ad Areli [RC] ASDIRECTED Care 07/24/18 08:27 Ordered VTE/DVT Education [RC] Click to Edit Care 07/24/18 08:29 Ordered Vital Signs [RC] PER UNIT ROUTINE Care 07/24/18 08:27 Ordered Clear Liquid Diet [DIET] Diet 07/24/18 Breakfast Ordered Acetaminophen [Tylenol] Med 07/24/18 08:27 Ordered 650 mg PO Q4H PRN Ondansetron [Zofran ODT] Med 07/24/18 08:27 Ordered 4 mg PO Q4H PRN Oxytocin/Normal Saline [Pitocin in NS 20 Units/1,000 ML Med 07/24/18 08:31 Ordered ] 20 unit in 1,000 ml IV ONETIME Penicillin G Potassium [Pfizerpen] 2.5 millunits Med 07/24/18 08:45 Ordered Sodium Chloride 0.9% [Normal Saline] 50 ml IV Q4H Penicillin G Potassium [Pfizerpen] 5 millunits Med 07/24/18 08:31 Ordered Sodium Chloride 0.9% [Normal Saline] 100 ml IV ONETIME Sodium Chloride 0.9% [Saline Flush] Med 07/24/18 08:27 Ordered 10 ml FLUSH ASDIRECTED PRN fentaNYL [Sublimaze] Med 07/24/18 08:27 Ordered 100 mcg IVPUSH Q1H PRN DVT/VTE Prophylaxis Reflex [OM.PC] Routine Oth 07/24/18 08:27 Ordered Saline Lock Insert [OM.PC] Routine Oth 07/24/18 06:51 Ordered Saline Lock Insert [OM.PC] Routine Oth 07/24/18 08:27 Ordered Resuscitation Status Routine Resus Stat 07/24/18 08:27 Ordered Medication Orders Acetaminophen (Tylenol) 650 mg PO Q4H PRN PRN Reason: Pain (Mild 1-3) and fever Fentanyl (Sublimaze) 100 mcg IVPUSH Q1H PRN PRN Reason: Pain (moderate 4-6) Oxytocin/Sodium Chloride (Pitocin In Ns 20 Units/1,000 Ml) 20 unit in 1,000 mls @ 999 mls/hr IV ONETIME ONE; Protocol Stop: 07/24/18 09:31 Penicillin G Potassium 5 (millunits/ Sodium Chloride) 100 mls @ 200 mls/hr IV ONETIME ONE Stop: 07/24/18 09:00 Penicillin G Potassium 2.5 (millunits/ Sodium Chloride) 50 mls @ 100 mls/hr IV Q4H [facility] Ondansetron HCl (Zofran Odt) 4 mg PO Q4H PRN PRN Reason: Nausea/Vomiting Sodium Chloride (Saline Flush) 10 ml FLUSH ASDIRECTED PRN PRN Reason: Keep Vein Open Assessment/Plan Comment:: 27 year old 39 4/7 weeks induction per patient request, ripe cervica, past history of traumatic FHT baseline 150, Cat one strip /- 50 mcg miso placed at 0815 maybe up and about will reassess at noon plan for vaginal delivery
[2018-07-24] MEDS ORDERED: Penicillin G Potassium 5 MILLUNITS in Sodium Chloride 0.9% 100 ML IV ONE ×4 (08:45)
--- NOTE | 2018-07-24 12:10 | PCM.PNLD ---
Labor Progress Note - VS & Meds Vital Signs: Last Vital Signs Temp 97 F 07/24/18 10:20 Pulse 70 07/24/18 10:20 Resp 16 07/24/18 10:20 BP 113/60 07/24/18 10:20 Pulse Ox 97 07/24/18 10:20 Active Medications: Current Medications Acetaminophen (Tylenol) 650 mg PO Q4H PRN PRN Reason: Pain (Mild 1-3) and fever Fentanyl (Sublimaze) 100 mcg IVPUSH Q1H PRN PRN Reason: Pain (moderate 4-6) Oxytocin/Sodium Chloride (Pitocin In Ns 20 Units/1,000 Ml) 20 unit in 1,000 mls @ 999 mls/hr IV ASDIRECTED [facility]; Protocol Penicillin G Potassium 2.5 (millunits/ Sodium Chloride) 50 mls @ 100 mls/hr IV Q4H [facility] Ondansetron HCl (Zofran Odt) 4 mg PO Q4H PRN PRN Reason: Nausea/Vomiting Sodium Chloride (Saline Flush) 10 ml FLUSH ASDIRECTED PRN PRN Reason: Keep Vein Open Discontinued Medications Penicillin G Potassium 5 (millunits/ Sodium Chloride) 100 mls @ 200 mls/hr IV ONETIME ONE Stop: 07/24/18 09:14 Last Admin: 07/24/18 09:11 Dose: 200 mls/hr Misoprostol (Cytotec) 50 mcg VAG ONETIME ONE Stop: 07/24/18 06:51 Last Admin: 07/24/18 08:19 Dose: 50 mcg - Uterine Contractions Uterine Monitoring Mode: External [place] Contraction Frequency (min): 2 Contraction Duration (sec): 50-60 Contraction Intensity: Mild to Moderate Uterine Resting Tone: Soft - Monitoring Monitor Mode: Doppler/Auscultation Heart Rate (FHR) Variability: Moderate (6-25 bmp) Decelerations: None Strip Review: Category I - Vaginal Exam Dilation (cm): 1 Effacement (Percent): 75 Station: -1 Cervical Position: Posterior Sterile Vaginal Exam Performed By: Sera Bundy Vaginal Exam Comment: no cervical change - Labor Progress (Free Text) Labor Progress: contractions every 2 minutes times 2 hours. Will monitor for change recheck at 1500
[2018-07-24] MEDS: Penicillin G Potassium 2.5 MILLUNITS in Sodium Chloride 0.9% 50 ML IV SCH ×3 (13:01→20:30)
[2018-07-24] MEDS ORDERED: Misoprostol 25 MCG (1/4 of 100 MCG) Tab ONE (15:47)
--- NOTE | 2018-07-24 15:53 | PCM.PNLD ---
Labor Progress Note - VS & Meds Vital Signs: Last Vital Signs Temp 96.7 F 07/24/18 13:30 Pulse 68 07/24/18 13:30 Resp 16 07/24/18 13:30 BP 139/46 L 07/24/18 13:30 Pulse Ox 99 07/24/18 13:30 Active Medications: Current Medications Acetaminophen (Tylenol) 650 mg PO Q4H PRN PRN Reason: Pain (Mild 1-3) and fever Fentanyl (Sublimaze) 100 mcg IVPUSH Q1H PRN PRN Reason: Pain (moderate 4-6) Oxytocin/Sodium Chloride (Pitocin In Ns 20 Units/1,000 Ml) 20 unit in 1,000 mls @ 999 mls/hr IV ASDIRECTED [facility]; Protocol Penicillin G Potassium 2.5 (millunits/ Sodium Chloride) 50 mls @ 100 mls/hr IV Q4H [facility] Last Admin: 07/24/18 13:01 Dose: 100 mls/hr Ondansetron HCl (Zofran Odt) 4 mg PO Q4H PRN PRN Reason: Nausea/Vomiting Sodium Chloride (Saline Flush) 10 ml FLUSH ASDIRECTED PRN PRN Reason: Keep Vein Open Discontinued Medications Penicillin G Potassium 5 (millunits/ Sodium Chloride) 100 mls @ 200 mls/hr IV ONETIME ONE Stop: 07/24/18 09:14 Last Admin: 07/24/18 09:11 Dose: 200 mls/hr Misoprostol (Cytotec) 50 mcg VAG ONETIME ONE Stop: 07/24/18 06:51 Last Admin: 07/24/18 08:19 Dose: 50 mcg Misoprostol (Cytotec) Confirm Administered Dose 25 mcg .ROUTE .STK-MED ONE Stop: 07/24/18 15:48 - Uterine Contractions Uterine Monitoring Mode: External [place] Contraction Frequency (min): 1.5-2.5 Contraction Duration (sec): 50-60 Contraction Intensity: Mild to Moderate Uterine Resting Tone: Soft - Monitoring Monitor Mode: Doppler/Auscultation Heart Rate (FHR) Variability: Moderate (6-25 bmp) Accelerations: Prolonged Accelerations (>2x10 min) Decelerations: None Strip Review: Category I - Vaginal Exam Dilation (cm): 2 Effacement (Percent): 90 Station: -1 Cervical Position: Anterior Sterile Vaginal Exam Performed By: Sera Bundy Vaginal Exam Comment: super thin, contractions stronger - Labor Progress (Free Text) Labor Progress: Second dose of 25 Misoprotol placed at 1545. Doing well Anticipate a vaginal delivery later.
[2018-07-24] MEDS ORDERED: Misoprostol 25 MCG (1/4 of 100 MCG) Tab VAG ONE (16:00)
[2018-07-24] MEDS ORDERED: Sodium Chloride 0.9% 1,000 ML IV SCH (16:15)
[2018-07-24] MEDS ORDERED: ePHEDrine 50 MG/ML SDV ONE (17:12)
[2018-07-24] MEDS ORDERED: Ropivacaine 100 ML ONE (18:14)
[2018-07-24] MEDS ORDERED: Ropivacaine 100 ML EPIDUR SCH (20:04)
[2018-07-24] MEDS ORDERED: ePHEDrine 50 MG/ML SDV IV PRN (20:04)
[2018-07-24] MEDS ORDERED: diphenhydrAMINE 50 MG/ML SDV IVPUSH PRN (20:04)
[2018-07-24] MEDS ORDERED: Naloxone 0.4 MG/ML SDV IVPUSH PRN (20:04)
--- NOTE | 2018-07-24 23:00 | PCM.PNLD ---
Labor Progress Note - VS & Meds Vital Signs: Last Vital Signs Temp 95.9 F 07/24/18 20:08 Pulse 70 07/24/18 22:00 Resp 16 07/24/18 22:00 BP 113/45 L 07/24/18 22:00 Pulse Ox 98 07/24/18 22:00 Active Medications: Current Medications Acetaminophen (Tylenol) 650 mg PO Q4H PRN PRN Reason: Pain (Mild 1-3) and fever Diphenhydramine HCl (Benadryl) 25 mg IVPUSH Q6H PRN PRN Reason: ITCHING Ephedrine Sulfate (Ephedrine Sulfate) 5 - 10 mg IV ASDIRECTED PRN PRN Reason: Systolic BP less than 100 Fentanyl (Sublimaze) 100 mcg IVPUSH Q1H PRN PRN Reason: Pain (moderate 4-6) Oxytocin/Sodium Chloride (Pitocin In Ns 20 Units/1,000 Ml) 20 unit in 1,000 mls @ 999 mls/hr IV ASDIRECTED ESSENCE; Protocol Penicillin G Potassium 2.5 (millunits/ Sodium Chloride) 50 mls @ 100 mls/hr IV Q4H ESSENCE Last Admin: 07/24/18 20:30 Dose: 100 mls/hr Ropivacaine (Naropin 0.2%) 100 mls @ 0 mls/hr EPIDUR ASDIRECTED ESSENCE; Protocol Naloxone HCl 0.4 mg/ Sodium (Chloride) 1,001 mls @ 0 mls/hr IV ASDIRECTED PRN; Protocol PRN Reason: ITCHING Naloxone HCl (Narcan) 0.1 mg IVPUSH Q5M PRN PRN Reason: IF RESP RATE LESS THAN 6 Ondansetron HCl (Zofran Odt) 4 mg PO Q4H PRN PRN Reason: Nausea/Vomiting Sodium Chloride (Saline Flush) 10 ml FLUSH ASDIRECTED PRN PRN Reason: Keep Vein Open Discontinued Medications Ephedrine Sulfate (Ephedrine Sulfate) Confirm Administered Dose 50 mg .ROUTE .STK-MED ONE Stop: 07/24/18 17:13 Last Admin: 07/24/18 19:04 Dose: Not Given Penicillin G Potassium 5 (millunits/ Sodium Chloride) 100 mls @ 200 mls/hr IV ONETIME ONE Stop: 07/24/18 09:14 Last Admin: 07/24/18 09:11 Dose: 200 mls/hr Sodium Chloride (Normal Saline) 1,000 mls @ 999 mls/hr IV ASDIRECTED ESSENCE Stop: 07/24/18 17:14 Last Admin: 07/24/18 16:05 Dose: 999 mls/hr Ropivacaine (Naropin 0.2%) Confirm Administered Dose 100 mls @ as directed .ROUTE .STK-MED ONE Stop: 07/24/18 18:15 Misoprostol (Cytotec) 50 mcg VAG ONETIME ONE Stop: 07/24/18 06:51 Last Admin: 07/24/18 08:19 Dose: 50 mcg Misoprostol (Cytotec) Confirm Administered Dose 25 mcg .ROUTE .STK-MED ONE Stop: 07/24/18 15:48 Last Admin: 07/24/18 16:31 Dose: Not Given Misoprostol (Cytotec) 25 mcg VAG ONETIME ONE Stop: 07/24/18 16:01 Last Admin: 07/24/18 15:50 Dose: 25 mcg - Uterine Contractions Uterine Monitoring Mode: External [place] Contraction Frequency (min): 1-4 Contraction Duration (sec): 40-50 Contraction Intensity: Moderate to Strong Uterine Resting Tone: Soft - Monitoring Monitor Mode: Doppler/Auscultation Heart Rate (FHR) Variability: Moderate (6-25 bmp) Accelerations: Prolonged Accelerations (>2x10 min) Decelerations: None Strip Review: Category I - Vaginal Exam Dilation (cm): 7 Effacement (Percent): 100 Station: 0 Cervical Position: Midposition Sterile Vaginal Exam Performed By: Sera Bundy Vaginal Exam Comment: super thin, contractions stronger - Labor Progress (Free Text) Labor Progress: progress, Cat one strip baseline 135 FHT CE 7/100/0-+1 bloody show no bag present Plan for vaginal delivery
[2018-07-25] MEDS: Penicillin G Potassium 2.5 MILLUNITS in Sodium Chloride 0.9% 50 ML IV SCH ×2 (00:52→05:43)
[2018-07-25] MEDS ORDERED: Ropivacaine 200 MG in Premix Bag 1 BAG EPIDUR SCH (01:00)
--- NOTE | 2018-07-25 01:47 | ANES ---
DATE OF SERVICE: 07/24/2018 INDICATIONS: Ludy is a 27-year-old female, patient of Sera Bundy, #[id number]. She is here today in her OB unit. I was requested to assess her for labor epidural. Upon arrival, I discussed with her the patient history as well as lab work. DESCRIPTION OF PROCEDURE: I found no contraindication to procedure. She is okay to proceed and consent was received. I had her seated at the edge of the bed. Betadine prep x3 to lumbar region. Sterile drape was placed, 1% lidocaine skin wheal as well as deep at the L3- L4 region, 17-gauge Tuohy was placed to loss of resistance. Negative CSF, negative heme, negative paresthesia. Catheter inserted to 12 cm and secured. Test dose 3 mL of 1.5% lidocaine and 1:200,000 epinephrine with negative sequelae. Catheter was then secured. She tolerated the procedure quite well. Please refer to nurse's notes for vital signs and neuro status, and they were unchanged and within normal limits. Again, she tolerated the procedure quite well, reported off to nurse and mid-. Thank you for consult. Alvin Fatima CRNA /[id number]
[2018-07-25] MEDS ORDERED: Carboprost Tromethamine 250 MCG/1 ML Amp ONE (03:37)
[2018-07-25] MEDS ORDERED: Misoprostol 200 MCG Tab ONE (03:37)
[2018-07-25] MEDS ORDERED: Methylergonovine 0.2 MG/1 ML Amp IM PRN (03:38)
[2018-07-25] MEDS ORDERED: Carboprost Tromethamine 250 MCG/1 ML Amp IM PRN (03:40)
[2018-07-25] MEDS ORDERED: Misoprostol 50 MCG (1/2 of 100 MCG) Tab VAG ONE (03:43)
[2018-07-25] MEDS ORDERED: Witch Hazel Medicated Pads 100/Jar TOP PRN (04:19)
[2018-07-25] MEDS ORDERED: Methylergonovine 0.2 MG Tab PO PRN (04:19)
[2018-07-25] MEDS ORDERED: Hydrocortisone 2.5% Crm 30 GM Tube TOP PRN (04:19)
[2018-07-25] MEDS ORDERED: Benzocaine 20% Top Spray 56 GM Bottle TOP PRN (04:19)
[2018-07-25] MEDS ORDERED: Acetaminophen 325 MG Tab, 50 Tab Bulk Bottle PO PRN ×2 (04:24→07:12)
[2018-07-25] MEDS ORDERED: Ibuprofen 200 MG Tab, 24 Tab Bulk Bottle PO PRN (04:24)
--- NOTE | 2018-07-25 04:45 | PCM.DEL ---
L & D Note - General Info Date of Service: 07/25/18 (delivery) Mother's Due Date: 07/27/18 - Delivery Note Labor: Augmented by Oxytocin Cervical Ripening Method: Misoprostil Delivery Outcome: Livebirth Delivery Method: Spontaneous Vaginal Delivery-Single Delivery Mode: Spontaneous Presentation: Left Occiput Posterior (LOP) Nuchal Cord: None Anesthesia Type: Epidural Amniotic Fluid Description: Clear Episiotomy Type: Midline Laceration: 2nd Degree, Perineal Suture type: Chromic Suture size: 3-0 Placenta: Manual Removal, Retained Cord: 3 Vessels Estimated Blood Loss: 500 Resuscitation Needed: No : Stimulated, Warmed, [place] Used Provider: Sera Bundy Score 1 min: 9 Score 5 min: 10 Post Delivery Events: Hemorrhage Second Stage Interventions: Reports: Second Nurse Reviewed Contraction Pattern, Second Nurse Reviewed Heart Tones, Pushing Effectively, Pushing, McRobert' s Position Delivery Comments (Free Text/Narrative):: This 27 year old G2 now P2 who is 39 5/7 weeks gestation delivered via a viable male at 0320 in LOP with a episiotomy for restrictive presentation. The episiotomy was midline and did not extend. [place] was delivered and placed on mother's abdomen. He was pink and cried spontaneously. Apgars of 9 and 10. three vessel cord. He was dried and stimulated and transitioned well. The Placenta was expressed manually for hemorrhage and was retained. It was intact with a velamentous insertion along the edge, Was sent for pathology. Inspection of the vagina, cervix, and rectum no lacerations were found. The perineum was repaired in standard fashion with 3-0 vicryl. The hemorrhage prior to the removal of the placenta was managed with Pitocin IV bolus and Methergine IM. EBL 500cc Mother and baby to post and nursery in stable condition. Induction Criteria - Matthew Score Matthew Score Dilation: 1-2 cm Matthew Score Effacement: 60-70% Matthew Score Infant's Station: -1 ,0 Matthew Score Consistency: Soft Matthew Score Cervix Position: Posterior Matthew Score Total: 7 Matthew Score Presenting Part: Reports: Cephalic - Induction Gestational Age >/= 39 wks: Yes Estimated Pelvis: Reports: Adequate Reassuring Monitoring Strip: Yes Absence of Tachy Systole: Yes - Augmentation Estimated Pelvis: Reports: Adequate Weight Estimated:: Reports: LGA Reassuring Monitoring Strip: Yes Absence of Tachy Systole: Yes - General Info Date of Service: 07/25/18 Admission Dx/Problem (Free Text): Patient Status Order with Admit Dx/Problem 07/24/18 08:27 Patient Status [ADT] Routine Admission Diagnosis/Problem Admission Diagnosis/Problem Elective induction of labor planned Functional Status: Reports: Pain Controlled - Review of Systems General: Reports: No Symptoms HEENT: Reports: No Symptoms Pulmonary: Reports: No Symptoms Cardiovascular: Reports: No Symptoms Gastrointestinal: Reports: No Symptoms Genitourinary: Reports: No Symptoms Musculoskeletal: Reports: No Symptoms Skin: Reports: No Symptoms Neurological: Reports: No Symptoms Psychiatric: Reports: No Symptoms - Patient Data Vitals - Most Recent: Last Vital Signs Temp 100.3 F 07/25/18 03:31 Pulse 86 07/25/18 04:02 Resp 18 07/25/18 04:02 BP 124/60 07/25/18 04:02 Pulse Ox 98 07/25/18 04:02 Weight - Most Recent: 220 lb Lab Results Last 24 Hours: Laboratory Results - last 24 hr 07/24/18 07/24/18 07/24/18 Range/Units 06:49 06:49 06:50 WBC 11.1 H (4.5-11.0) K/uL RBC 4.31 (3.30-5.50) M/uL Hgb 12.7 (12.0-15.0) g/dL Hct 39.4 (36.0-48.0) % MCV 91 (80-98) fL MCH 30 (27-31) pg MCHC 32 (32-36) % Plt Count 229 (150-400) K/uL Neut % (Auto) 75 H (36-66) % Lymph % (Auto) 16 L (24-44) % [place] % (Auto) 7 H (2-6) % Eos % (Auto) 2 (2-4) % Baso % (Auto) 0 (0-1) % Urine Color Yellow Urine Appearance Cloudy Urine pH 5.0 (4.5-8.0) Ur Specific [place] 1.020 (1.008-1.030) Urine Protein Trace (NEGATIVE) mg/dL Urine Glucose (UA) Normal (NEGATIVE) mg/dL Urine Ketones Negative (NEGATIVE) mg/dL Urine Occult Blood Negative (NEGATIVE) Urine Nitrite Negative (NEGATIVE) Urine Bilirubin Negative (NEGATIVE) Urine Urobilinogen Normal (NORMAL) mg/dL Ur Leukocyte Esterase Moderate (NEGATIVE) Urine RBC 0-5 (0-5) Urine WBC 20-30 H (0-5) Ur Epithelial Cells Many Amorphous Sediment Not seen Urine Bacteria Many Urine Mucus Moderate Urine Opiates Screen Negative (NEGATIVE) Ur Oxycodone Screen Negative (NEGATIVE) Urine Methadone Screen Negative (NEGATIVE) Ur Propoxyphene Screen Negative (NEGATIVE) Ur Barbiturates Screen Negative (NEGATIVE) Ur Tricyclics Screen Negative (NEGATIVE) Ur Phencyclidine Scrn Negative (NEGATIVE) Ur Amphetamine Screen Negative (NEGATIVE) U Methamphetamines Scrn Negative (NEGATIVE) Urine MDMA Screen Negative (NEGATIVE) U Benzodiazepines Scrn Negative (NEGATIVE) U Cocaine Metab Screen Negative (NEGATIVE) U Marijuana (THC) Screen Negative (NEGATIVE) Med Orders - Current: Current Medications Acetaminophen (Tylenol) 650 mg PO Q4H PRN PRN Reason: Pain (Mild 1-3) and fever Acetaminophen (Tylenol Bulk Bottle) 325 mg PO Q4H PRN PRN Reason: Pain Benzocaine (Bswb-U-Wcdovks 20% [place]) 0 gm TOP Q4H PRN PRN Reason: Perineal Comfort Measure Carboprost Tromethamine (Hemabate Ds) 250 mcg IM STAT PRN PRN Reason: Bleeding Diphenhydramine HCl (Benadryl) 25 mg IVPUSH Q6H PRN PRN Reason: ITCHING Docusate Sodium (Colace) 100 mg PO BID ESSENCE Ephedrine Sulfate (Ephedrine Sulfate) 5 - 10 mg IV ASDIRECTED PRN PRN Reason: Systolic BP less than 100 Fentanyl (Sublimaze) 100 mcg IVPUSH Q1H PRN PRN Reason: Pain (moderate 4-6) Ferrous Sulfate (Ferrous Sulfate) 325 mg PO WITHBREAKFAST ESSENCE Hydrocortisone (Proctozone-Hc 2.5% Crm) 1 gm TOP ASDIRECTED PRN PRN Reason: Itching Oxytocin/Sodium Chloride (Pitocin In Ns 20 Units/1,000 Ml) 20 unit in 1,000 mls @ 999 mls/hr IV ASDIRECTED ESSENCE; Protocol Penicillin G Potassium 2.5 (millunits/ Sodium Chloride) 50 mls @ 100 mls/hr IV Q4H ESSENCE Last Admin: 07/25/18 00:52 Dose: 100 mls/hr Ropivacaine (Naropin 0.2%) 100 mls @ 0 mls/hr EPIDUR ASDIRECTED ESSENCE; Protocol Naloxone HCl 0.4 mg/ Sodium (Chloride) 1,001 mls @ 0 mls/hr IV ASDIRECTED PRN; Protocol PRN Reason: ITCHING Ropivacaine 200 mg/ Premix 100 mls @ 0 mls/hr EPIDUR ASDIRECTED ESSENCE Last Admin: 07/25/18 00:48 Dose: 12 mls/hr Oxytocin/Sodium Chloride (Pitocin In Ns 20 Units/1,000 Ml) 20 unit in 1,000 mls @ 6 mls/hr IV TITRATE ESSENCE; Protocol Last Titration: 07/25/18 02:08 Dose: 4 munits/min, 12 mls/hr Ibuprofen (Motrin Bulk Bottle) 600 mg PO Q6H PRN PRN Reason: Pain Methylergonovine Maleate (Methergine) 0.2 mg IM STAT PRN PRN Reason: Bleeding Last Admin: 07/25/18 03:38 Dose: 0.2 mg Methylergonovine Maleate (Methergine) 0.2 mg PO TID PRN PRN Reason: excessive vaginal bleeding Stop: 07/26/18 21:01 Naloxone HCl (Narcan) 0.1 mg IVPUSH Q5M PRN PRN Reason: IF RESP RATE LESS THAN 6 Ondansetron HCl (Zofran Odt) 4 mg PO Q4H PRN PRN Reason: Nausea/Vomiting Sodium Chloride (Saline Flush) 10 ml FLUSH ASDIRECTED PRN PRN Reason: Keep Vein Open Witch [place] (Tucks) 1 pad TOP ASDIRECTED PRN PRN Reason: Hemorrhoids Discontinued Medications Carboprost Tromethamine (Hemabate Ds) Confirm Administered Dose 250 mcg .ROUTE .STK-MED ONE Stop: 07/25/18 03:38 Last Admin: 07/25/18 04:26 Dose: Not Given Ephedrine Sulfate (Ephedrine Sulfate) Confirm Administered Dose 50 mg .ROUTE .STK-MED ONE Stop: 07/24/18 17:13 Last Admin: 07/24/18 19:04 Dose: Not Given Penicillin G Potassium 5 (millunits/ Sodium Chloride) 100 mls @ 200 mls/hr IV ONETIME ONE Stop: 07/24/18 09:14 Last Admin: 07/24/18 09:11 Dose: 200 mls/hr Sodium Chloride (Normal Saline) 1,000 mls @ 999 mls/hr IV ASDIRECTED ESSENCE Stop: 07/24/18 17:14 Last Admin: 07/24/18 16:05 Dose: 999 mls/hr Ropivacaine (Naropin 0.2%) Confirm Administered Dose 100 mls @ as directed .ROUTE .STK-MED ONE Stop: 07/24/18 18:15 Misoprostol (Cytotec) 50 mcg VAG ONETIME ONE Stop: 07/24/18 06:51 Last Admin: 07/24/18 08:19 Dose: 50 mcg Misoprostol (Cytotec) Confirm Administered Dose 25 mcg .ROUTE .STK-MED ONE Stop: 07/24/18 15:48 Last Admin: 07/24/18 16:31 Dose: Not Given Misoprostol (Cytotec) 25 mcg VAG ONETIME ONE Stop: 07/24/18 16:01 Last Admin: 07/24/18 15:50 Dose: 25 mcg Misoprostol (Cytotec) Confirm Administered Dose 800 mcg .ROUTE .STK-MED ONE Stop: 07/25/18 03:38 Last Admin: 07/25/18 04:27 Dose: Not Given Misoprostol (Cytotec) 800 mcg VAG ONETIME ONE Stop: 07/25/18 03:44 Last Admin: 07/25/18 04:27 Dose: Not Given - Exam General: Alert, Oriented HEENT: Pupils Equal, Pupils Reactive, Mucous Membr. Moist/[place] Neck: Supple Lungs: Clear to Auscultation, Normal Respiratory Effort Cardiovascular: Regular Rate, Regular Rhythm GI/Abdominal Exam: No Distention, Pelvis Stable (Female) Exam: Cervical Dilatation, Enlarged Uterus, Vaginal Bleeding Back Exam: Normal Inspection, Full Range of Motion Extremities: Normal Inspection, No Pedal Edema, Normal Capillary Refill Skin: Warm, Dry, Intact Neurological: No New Focal Deficit Psy/Mental Status: Alert, Normal Affect, Normal Mood - Problem List & Annotations (1) Elective induction of labor planned SNOMED Code(s): 778911274 Code(s): PPA2218 - Status: Acute Current Visit: Yes (2) SNOMED Code(s): 18465195 Code(s): Z34.90 - ENCNTR FOR SUPRVSN OF NORMAL , UNSP, UNSP TRIMESTER Status: Acute Priority: High Current Visit: Yes Qualifiers: Weeks of gestation: 39 weeks Qualified Code(s): Z3A.39 - 39 weeks gestation of (3) Laceration, obstetrical, second degree SNOMED Code(s): 7615015 Code(s): O70.1 - SECOND DEGREE PERINEAL LACERATION DURING DELIVERY Status: Acute Current Visit: Yes (4) Retained placenta with hemorrhage SNOMED Code(s): 99760705 Code(s): O72.0 - THIRD-STAGE HEMORRHAGE Status: Acute Current Visit: Yes (5) Normal labor and delivery SNOMED Code(s): 43849019, 37893124 Code(s): O80 - ENCOUNTER FOR FULL-TERM UNCOMPLICATED DELIVERY Status: Acute Current Visit: Yes (6) GBS (group B Streptococcus carrier), +RV culture, currently SNOMED Code(s): 1940629900589, 085929004, 9931336064652 Code(s): O99.820 - STREPTOCOCCUS B CARRIER STATE COMPLICATING Status: Acute Current Visit: Yes - Problem List Review Problem List Initiated/Reviewed/Updated: Yes - My Orders Last 24 Hours: My Active Orders 07/24/18 06:51 Saline Lock Insert [OM.PC] Routine 07/24/18 08:27 Communication Order [RC] ASDIRECTED May Shower [RC] ASDIRECTED Notify Provider Vital Signs [RC] PRN Notify Provider [RC] PRN Up ad Areli [RC] ASDIRECTED Vital Signs [RC] PER UNIT ROUTINE Acetaminophen [Tylenol] 650 mg PO Q4H PRN Ondansetron [Zofran ODT] 4 mg PO Q4H PRN Sodium Chloride 0.9% [Saline Flush] 10 ml FLUSH ASDIRECTED PRN fentaNYL [Sublimaze] 100 mcg IVPUSH Q1H PRN DVT/VTE Prophylaxis Reflex [OM.PC] Routine Saline Lock Insert [OM.PC] Routine Resuscitation Status Routine 07/24/18 08:29 Antiembolic Devices [RC] .Routine VTE/DVT Education [RC] Click to Edit 07/24/18 09:00 Oxytocin/Normal Saline [Pitocin in NS 20 Units/1,000 ML] 20 unit in 1,000 ml IV ASDIRECTED 07/24/18 13:00 Penicillin G Potassium [Pfizerpen] 2.5 millunits Sodium Chloride 0.9% [Normal Saline] 50 ml IV Q4H 07/24/18 18:35 Epidural Catheter Management [OM.PC] Urgent 07/24/18 18:36 PCEA Epidural [RC] ASDIRECTED 07/24/18 18:45 Insert [place] Catheter [Insert Urinary Catheter] [OM.PC] Q24H 07/24/18 Breakfast Clear Liquid Diet [DIET] 07/25/18 01:30 Oxytocin/Normal Saline [Pitocin in NS 20 Units/1,000 ML] 20 unit in 1,000 ml IV TITRATE 07/25/18 03:38 Methylergonovine [Methergine] 0.2 mg IM STAT PRN 07/25/18 03:40 Carboprost Tromethamine [Hemabate DS] 250 mcg IM STAT PRN 07/25/18 03:45 RED BLOOD CELLS LP [BBK] Routine TYPE AND SCREEN [BBK] Routine 07/25/18 04:19 Patient Status [ADT] Routine Vital Signs [RC] PFP Benzocaine [Gbdb-N-Rehmwvd 20% [place]] See Dose Instructions TOP Q4H PRN Hydrocortisone [Proctozone-HC 2.5% Crm] 1 gm TOP ASDIRECTED PRN Methylergonovine [Methergine] 0.2 mg PO TID PRN Witch [place] [Tucks] 1 pad TOP ASDIRECTED PRN Assess Uterine Involution [WOMSER] Per Unit Routine Perineal Care [OM.PC] Per Unit Routine Sitz Bath [OM.PC] Per Unit Routine 07/25/18 04:20 Ice Therapy [OM.PC] Per Unit Routine Peripheral IV Discontinue [OM.PC] Routine 07/25/18 04:24 Acetaminophen [Tylenol Bulk Bottle] 325 mg PO Q4H PRN Ibuprofen [Motrin Bulk Bottle] 600 mg PO Q6H PRN 07/25/18 08:00 Ferrous Sulfate 325 mg PO WITHBREAKFAST 07/25/18 09:00 Docusate Sodium [Colace] 100 mg PO BID 07/25/18 Breakfast Regular Diet [DIET] 07/26/18 05:11 CBC WITH AUTO DIFF [HEME] AM - Assessment Assessment:: 27 year old G2 now P2 39 5/7 weeks with with complications hemorrhage with retained placenta, manual removal episiotomy for restrictive delivery, direct OP, repaired - Plan Plan:: 27 year old 39 4/7 weeks induction per patient request, ripe cervica, past history of traumatic FHT baseline 150, Cat one strip /-1 50 mcg miso placed at 0815 maybe up and about will reassess at noon plan for vaginal delivery 07/25/18 routine post care cbc at 1000 this morning iron supplement ordered sitz bath later support 48 hour stay, GBS positive
[2018-07-25] MEDS: Docusate Sodium 100 MG Cap PO SCH (09:09)
[2018-07-25] MEDS: Ferrous Sulfate 325 MG Tab PO SCH (09:09)
[2018-07-26] MEDS: Docusate Sodium 100 MG Cap PO SCH ×3 (00:39→08:14)
[2018-07-26] MEDS: Ferrous Sulfate 325 MG Tab PO SCH (07:55)
--- NOTE | 2018-07-26 08:27 | PCM.PNPP ---
- General Info Date of Service: 07/26/18 Functional Status: Reports: Pain Controlled - Review of Systems General: Reports: No Symptoms HEENT: Reports: No Symptoms Pulmonary: Reports: No Symptoms Cardiovascular: Reports: No Symptoms Gastrointestinal: Reports: No Symptoms Genitourinary: Reports: No Symptoms Musculoskeletal: Reports: No Symptoms Skin: Reports: No Symptoms Neurological: Reports: No Symptoms Psychiatric: Reports: No Symptoms - General Info Date of Service: 07/26/18 - Patient Data Vital Signs - Most Recent: Last Vital Signs Temp 35.7 C 07/26/18 07:39 Pulse 65 07/26/18 07:39 Resp 16 07/26/18 07:39 BP 101/44 L 07/26/18 07:39 Pulse Ox 99 07/26/18 07:39 Weight - Most Recent: 99.79 kg I&O - Last 24 Hours: Intake & Output 07/25/18 07/26/18 07/26/18 22:59 06:59 14:59 Intake Total 1500 Balance 1500 Lab Results - Last 24 Hours: Laboratory Results - last 24 hr 07/25/18 07/26/18 Range/Units 12:30 04:42 WBC 17.7 H 13.4 H (4.5-11.0) K/uL RBC 3.68 3.45 (3.30-5.50) M/uL Hgb 10.8 L 10.0 L (12.0-15.0) g/dL Hct 33.6 L 32.0 L (36.0-48.0) % MCV 91 93 (80-98) fL MCH 29 29 (27-31) pg MCHC 32 31 L (32-36) % Plt Count 212 197 (150-400) K/uL Neut % (Auto) 72 H (36-66) % Lymph % (Auto) 15 L (24-44) % [place] % (Auto) 11 H (2-6) % Eos % (Auto) 3 (2-4) % Baso % (Auto) 0 (0-1) % Med Orders - Current: Current Medications Acetaminophen (Tylenol Bulk Bottle) 325 - 650 mg PO Q4H PRN PRN Reason: Pain Last Admin: 07/26/18 00:40 Dose: 650 mg Benzocaine (Orhj-E-Myrnluy 20% [place]) 0 gm TOP Q4H PRN PRN Reason: Perineal Comfort Measure Carboprost Tromethamine (Hemabate Ds) 250 mcg IM STAT PRN PRN Reason: Bleeding Docusate Sodium (Colace) 100 mg PO BID [facility] Last Admin: 07/26/18 08:14 Dose: Not Given Ferrous Sulfate (Ferrous Sulfate) 325 mg PO WITHBREAKFAST [facility] Last Admin: 07/26/18 07:55 Dose: 325 mg Hydrocortisone (Proctozone-Hc 2.5% Crm) 1 gm TOP ASDIRECTED PRN PRN Reason: Itching Oxytocin/Sodium Chloride (Pitocin In Ns 20 Units/1,000 Ml) 20 unit in 1,000 mls @ 6 mls/hr IV TITRATE [facility]; Protocol Last Titration: 07/25/18 03:20 Dose: 999 mls/hr Ibuprofen (Motrin Bulk Bottle) 600 mg PO Q6H PRN PRN Reason: Pain Last Admin: 07/25/18 04:58 Dose: 600 mg Methylergonovine Maleate (Methergine) 0.2 mg IM STAT PRN PRN Reason: Bleeding Last Admin: 07/25/18 03:38 Dose: 0.2 mg Methylergonovine Maleate (Methergine) 0.2 mg PO TID PRN PRN Reason: excessive vaginal bleeding Stop: 07/26/18 21:01 Sodium Chloride (Saline Flush) 10 ml FLUSH ASDIRECTED PRN PRN Reason: Keep Vein Open Witch Nayana (Tucks) 1 pad TOP ASDIRECTED PRN PRN Reason: Hemorrhoids Discontinued Medications Acetaminophen (Tylenol) 650 mg PO Q4H PRN PRN Reason: Pain (Mild 1-3) and fever Acetaminophen (Tylenol Bulk Bottle) 325 mg PO Q4H PRN PRN Reason: Pain Last Admin: 07/25/18 04:57 Dose: 325 mg Carboprost Tromethamine (Hemabate Ds) Confirm Administered Dose 250 mcg .ROUTE .STK-MED ONE Stop: 07/25/18 03:38 Last Admin: 07/25/18 04:26 Dose: Not Given Diphenhydramine HCl (Benadryl) 25 mg IVPUSH Q6H PRN PRN Reason: ITCHING Ephedrine Sulfate (Ephedrine Sulfate) Confirm Administered Dose 50 mg .ROUTE .STK-MED ONE Stop: 07/24/18 17:13 Last Admin: 07/24/18 19:04 Dose: Not Given Ephedrine Sulfate (Ephedrine Sulfate) 5 - 10 mg IV ASDIRECTED PRN PRN Reason: Systolic BP less than 100 Fentanyl (Sublimaze) 100 mcg IVPUSH Q1H PRN PRN Reason: Pain (moderate 4-6) Oxytocin/Sodium Chloride (Pitocin In Ns 20 Units/1,000 Ml) 20 unit in 1,000 mls @ 999 mls/hr IV ASDIRECTED [facility]; Protocol Penicillin G Potassium 2.5 (millunits/ Sodium Chloride) 50 mls @ 100 mls/hr IV Q4H [facility] Last Admin: 07/25/18 05:43 Dose: Not Given Penicillin G Potassium 5 (millunits/ Sodium Chloride) 100 mls @ 200 mls/hr IV ONETIME ONE Stop: 07/24/18 09:14 Last Admin: 07/24/18 09:11 Dose: 200 mls/hr Sodium Chloride (Normal Saline) 1,000 mls @ 999 mls/hr IV ASDIRECTED [facility] Stop: 07/24/18 17:14 Last Admin: 07/24/18 16:05 Dose: 999 mls/hr Ropivacaine (Naropin 0.2%) Confirm Administered Dose 100 mls @ as directed .ROUTE .STK-MED ONE Stop: 07/24/18 18:15 Ropivacaine (Naropin 0.2%) 100 mls @ 0 mls/hr EPIDUR ASDIRECTED [facility]; Protocol Naloxone HCl 0.4 mg/ Sodium (Chloride) 1,001 mls @ 0 mls/hr IV ASDIRECTED PRN; Protocol PRN Reason: ITCHING Ropivacaine 200 mg/ Premix 100 mls @ 0 mls/hr EPIDUR ASDIRECTED [facility] Last Infusion: 07/25/18 03:52 Dose: 0 mls/hr Misoprostol (Cytotec) 50 mcg VAG ONETIME ONE Stop: 07/24/18 06:51 Last Admin: 07/24/18 08:19 Dose: 50 mcg Misoprostol (Cytotec) Confirm Administered Dose 25 mcg .ROUTE .STK-MED ONE Stop: 07/24/18 15:48 Last Admin: 07/24/18 16:31 Dose: Not Given Misoprostol (Cytotec) 25 mcg VAG ONETIME ONE Stop: 07/24/18 16:01 Last Admin: 07/24/18 15:50 Dose: 25 mcg Misoprostol (Cytotec) Confirm Administered Dose 800 mcg .ROUTE .STK-MED ONE Stop: 07/25/18 03:38 Last Admin: 07/25/18 04:27 Dose: Not Given Misoprostol (Cytotec) 800 mcg VAG ONETIME ONE Stop: 07/25/18 03:44 Last Admin: 07/25/18 04:27 Dose: Not Given Naloxone HCl (Narcan) 0.1 mg IVPUSH Q5M PRN PRN Reason: IF RESP RATE LESS THAN 6 Ondansetron HCl (Zofran Odt) 4 mg PO Q4H PRN PRN Reason: Nausea/Vomiting - Infant Interaction Disposition, : [place] at Bedside Interaction: Holding Infant Feeding: Breastfed Infant; Nursed Well Support Person: Significant Other - Recovery Exam Fundal Tone: Firm Fundal Level: 1 Fingerbreadths Below Umbilicus Fundal Placement: Midline Lochia Amount: Moderate Lochia Color: Rubra/Red Perineum Description: Intact, Minimal Bruising/Swelling Episiotomy/Laceration: Approximated Bladder Status: Nonpalpable Urinary Elimination: Voided - Exam General: Alert, Oriented HEENT: Pupils Equal Neck: Supple Lungs: Clear to Auscultation, Normal Respiratory Effort Cardiovascular: Regular Rate, Regular Rhythm GI/Abdominal Exam: Normal Bowel Sounds, Soft, Non-Tender, No Organomegaly, No Distention, No Abnormal Bruit, No Mass, Pelvis Stable Extremities: Normal Inspection, Normal Range of Motion, Non-Tender, No Pedal Edema, Normal Capillary Refill Skin: Warm, Dry, Intact Neurological: No New Focal Deficit Psy/Mental Status: Alert, Normal Affect, Normal Mood - Problem List & Annotations (1) Vaginal delivery SNOMED Code(s): 764295359 Code(s): O80 - ENCOUNTER FOR FULL-TERM UNCOMPLICATED DELIVERY Status: Acute Current Visit: Yes (2) Anemia due to acute blood loss SNOMED Code(s): 290409806 Code(s): D62 - ACUTE POSTHEMORRHAGIC ANEMIA Status: Acute Current Visit: Yes (3) GBS (group B Streptococcus carrier), +RV culture, currently SNOMED Code(s): 6709239580254, 355174356, 8091383030380 Code(s): O99.820 - STREPTOCOCCUS B CARRIER STATE COMPLICATING Status: Acute Current Visit: Yes (4) Laceration, obstetrical, second degree SNOMED Code(s): 1015932 Code(s): O70.1 - SECOND DEGREE PERINEAL LACERATION DURING DELIVERY Status: Acute Current Visit: Yes (5) Normal labor and delivery SNOMED Code(s): 03881618, 22718221 Code(s): O80 - ENCOUNTER FOR FULL-TERM UNCOMPLICATED DELIVERY Status: Acute Current Visit: Yes (6) Retained placenta with hemorrhage SNOMED Code(s): 48878504 Code(s): O72.0 - THIRD-STAGE HEMORRHAGE Status: Acute Current Visit: Yes - Problem List Review Problem List Initiated/Reviewed/Updated: Yes - Assessment Assessment:: 27 year old G2 now P2 39 5/7 weeks with with complications hemorrhage with retained placenta, manual removal episiotomy for restrictive delivery, direct OP, repaired 07/26/2018 day one well Voiding and passing gas Laceration healing, no signs of hematoma [id number] today Bonding well - Plan Plan:: 27 year old 39 4/7 weeks induction per patient request, ripe cervica, past history of traumatic FHT baseline 150, Cat one strip /-1 50 mcg miso placed at 0815 maybe up and about will reassess at noon plan for vaginal delivery 07/25/18 routine post care cbc at 1000 this morning iron supplement ordered sitz bath later support 48 hour stay, GBS positive 07/26/2018 Continue routine care Continue iron supplement and pericare products Continue to encourage and support Will discharge home tomorrow
[2018-07-27] MEDS: Docusate Sodium 100 MG Cap PO SCH ×2 (01:43→10:25)
--- NOTE | 2018-07-27 09:08 | PCM.PNPP ---
- General Info Date of Service: 07/27/18 Functional Status: Reports: Pain Controlled - Review of Systems General: Reports: No Symptoms HEENT: Reports: No Symptoms Pulmonary: Reports: No Symptoms Cardiovascular: Reports: No Symptoms Gastrointestinal: Reports: No Symptoms Genitourinary: Reports: No Symptoms Musculoskeletal: Reports: No Symptoms Skin: Reports: No Symptoms Neurological: Reports: No Symptoms Psychiatric: Reports: No Symptoms - General Info Date of Service: 07/27/18 - Patient Data Vital Signs - Most Recent: Last Vital Signs Temp 36.6 C 07/27/18 04:00 Pulse 71 07/27/18 00:03 Resp 16 07/27/18 04:00 BP 112/66 07/27/18 00:03 Pulse Ox 97 07/27/18 00:03 Weight - Most Recent: 99.79 kg I&O - Last 24 Hours: Intake & Output 07/26/18 07/27/18 07/27/18 22:59 06:59 14:59 Intake Total 1600 Balance 1600 Med Orders - Current: Current Medications Acetaminophen (Tylenol Bulk Bottle) 325 - 650 mg PO Q4H PRN PRN Reason: Pain Last Admin: 07/26/18 00:40 Dose: 650 mg Benzocaine ([id number] 20% [place]) 0 gm TOP Q4H PRN PRN Reason: Perineal Comfort Measure Carboprost Tromethamine (Hemabate Ds) 250 mcg IM STAT PRN PRN Reason: Bleeding Docusate Sodium (Colace) 100 mg PO BID [facility] Last Admin: 07/27/18 01:43 Dose: Not Given Ferrous Sulfate (Ferrous Sulfate) 325 mg PO WITHBREAKFAST [facility] Last Admin: 07/26/18 07:55 Dose: 325 mg Hydrocortisone (Proctozone-Hc 2.5% Crm) 1 gm TOP ASDIRECTED PRN PRN Reason: Itching Oxytocin/Sodium Chloride (Pitocin In Ns 20 Units/1,000 Ml) 20 unit in 1,000 mls @ 6 mls/hr IV TITRATE [facility]; Protocol Last Titration: 07/25/18 03:20 Dose: 999 mls/hr Ibuprofen (Motrin Bulk Bottle) 600 mg PO Q6H PRN PRN Reason: Pain Last Admin: 07/25/18 04:58 Dose: 600 mg Methylergonovine Maleate (Methergine) 0.2 mg IM STAT PRN PRN Reason: Bleeding Last Admin: 07/25/18 03:38 Dose: 0.2 mg Sodium Chloride (Saline Flush) 10 ml FLUSH ASDIRECTED PRN PRN Reason: Keep Vein Open [place] (Tucks) 1 pad TOP ASDIRECTED PRN PRN Reason: Hemorrhoids Discontinued Medications Acetaminophen (Tylenol) 650 mg PO Q4H PRN PRN Reason: Pain (Mild 1-3) and fever Acetaminophen (Tylenol Bulk Bottle) 325 mg PO Q4H PRN PRN Reason: Pain Last Admin: 07/25/18 04:57 Dose: 325 mg Carboprost Tromethamine (Hemabate Ds) Confirm Administered Dose 250 mcg .ROUTE .STK-MED ONE Stop: 07/25/18 03:38 Last Admin: 07/25/18 04:26 Dose: Not Given Diphenhydramine HCl (Benadryl) 25 mg IVPUSH Q6H PRN PRN Reason: ITCHING Ephedrine Sulfate (Ephedrine Sulfate) Confirm Administered Dose 50 mg .ROUTE .STK-MED ONE Stop: 07/24/18 17:13 Last Admin: 07/24/18 19:04 Dose: Not Given Ephedrine Sulfate (Ephedrine Sulfate) 5 - 10 mg IV ASDIRECTED PRN PRN Reason: Systolic BP less than 100 Fentanyl (Sublimaze) 100 mcg IVPUSH Q1H PRN PRN Reason: Pain (moderate 4-6) Oxytocin/Sodium Chloride (Pitocin In Ns 20 Units/1,000 Ml) 20 unit in 1,000 mls @ 999 mls/hr IV ASDIRECTED [facility]; Protocol Penicillin G Potassium 2.5 (millunits/ Sodium Chloride) 50 mls @ 100 mls/hr IV Q4H [facility] Last Admin: 07/25/18 05:43 Dose: Not Given Penicillin G Potassium 5 (millunits/ Sodium Chloride) 100 mls @ 200 mls/hr IV ONETIME ONE Stop: 07/24/18 09:14 Last Admin: 07/24/18 09:11 Dose: 200 mls/hr Sodium Chloride (Normal Saline) 1,000 mls @ 999 mls/hr IV ASDIRECTED [facility] Stop: 07/24/18 17:14 Last Admin: 07/24/18 16:05 Dose: 999 mls/hr Ropivacaine (Naropin 0.2%) Confirm Administered Dose 100 mls @ as directed .ROUTE .STK-MED ONE Stop: 07/24/18 18:15 Ropivacaine (Naropin 0.2%) 100 mls @ 0 mls/hr EPIDUR ASDIRECTED [facility]; Protocol Naloxone HCl 0.4 mg/ Sodium (Chloride) 1,001 mls @ 0 mls/hr IV ASDIRECTED PRN; Protocol PRN Reason: ITCHING Ropivacaine 200 mg/ Premix 100 mls @ 0 mls/hr EPIDUR ASDIRECTED [facility] Last Infusion: 07/25/18 03:52 Dose: 0 mls/hr Methylergonovine Maleate (Methergine) 0.2 mg PO TID PRN PRN Reason: excessive vaginal bleeding Stop: 07/26/18 21:01 Misoprostol (Cytotec) 50 mcg VAG ONETIME ONE Stop: 07/24/18 06:51 Last Admin: 07/24/18 08:19 Dose: 50 mcg Misoprostol (Cytotec) Confirm Administered Dose 25 mcg .ROUTE .STK-MED ONE Stop: 07/24/18 15:48 Last Admin: 07/24/18 16:31 Dose: Not Given Misoprostol (Cytotec) 25 mcg VAG ONETIME ONE Stop: 07/24/18 16:01 Last Admin: 07/24/18 15:50 Dose: 25 mcg Misoprostol (Cytotec) Confirm Administered Dose 800 mcg .ROUTE .STK-MED ONE Stop: 07/25/18 03:38 Last Admin: 07/25/18 04:27 Dose: Not Given Misoprostol (Cytotec) 800 mcg VAG ONETIME ONE Stop: 07/25/18 03:44 Last Admin: 07/25/18 04:27 Dose: Not Given Naloxone HCl (Narcan) 0.1 mg IVPUSH Q5M PRN PRN Reason: IF RESP RATE LESS THAN 6 Ondansetron HCl (Zofran Odt) 4 mg PO Q4H PRN PRN Reason: Nausea/Vomiting - Infant Interaction Disposition, : [place] at Bedside Interaction: Holding Feeding: Breastfed Infant; Nursed Well Support Person: Significant Other - Recovery Exam Fundal Tone: Firm Fundal Level: 1 Fingerbreadths Below Umbilicus Fundal Placement: Midline Lochia Amount: Moderate Lochia Color: Rubra/Red Perineum Description: Intact, Minimal Bruising/Swelling Episiotomy/Laceration: Approximated Bladder Status: Nonpalpable Urinary Elimination: Voided - Exam General: Alert, Oriented HEENT: Pupils Equal Neck: Supple Lungs: Clear to Auscultation, Normal Respiratory Effort Cardiovascular: Regular Rate, Regular Rhythm GI/Abdominal Exam: Normal Bowel Sounds, Soft, Non-Tender, No Organomegaly, No Distention, No Abnormal Bruit, No Mass, Pelvis Stable Extremities: Normal Inspection, Normal Range of Motion, Non-Tender, No Pedal Edema, Normal Capillary Refill Skin: Warm, Dry, Intact Wound/Incisions: Healing Well Neurological: No New Focal Deficit Psy/Mental Status: Alert, Normal Affect, Normal Mood - Problem List & Annotations (1) Vaginal delivery SNOMED Code(s): 579428790 Code(s): O80 - ENCOUNTER FOR FULL-TERM UNCOMPLICATED DELIVERY Status: Acute Current Visit: Yes (2) Anemia due to acute blood loss SNOMED Code(s): 926971825 Code(s): D62 - ACUTE POSTHEMORRHAGIC ANEMIA Status: Acute Current Visit: Yes (3) GBS (group B Streptococcus carrier), +RV culture, currently SNOMED Code(s): 9271542382747, 702169510, 7444617368671 Code(s): O99.820 - STREPTOCOCCUS B CARRIER STATE COMPLICATING Status: Acute Current Visit: Yes (4) Laceration, obstetrical, second degree SNOMED Code(s): 9551181 Code(s): O70.1 - SECOND DEGREE PERINEAL LACERATION DURING DELIVERY Status: Acute Current Visit: Yes (5) Normal labor and delivery SNOMED Code(s): 73881535, 29253225 Code(s): O80 - ENCOUNTER FOR FULL-TERM UNCOMPLICATED DELIVERY Status: Acute Current Visit: Yes (6) Retained placenta with hemorrhage SNOMED Code(s): 98243499 Code(s): O72.0 - THIRD-STAGE HEMORRHAGE Status: Acute Current Visit: Yes - Problem List Review Problem List Initiated/Reviewed/Updated: Yes - Assessment Assessment:: 27 year old G2 now P2 39 5/7 weeks with with complications hemorrhage with retained placenta, manual removal episiotomy for restrictive delivery, direct OP, repaired 07/26/2018 day one well Voiding and passing gas Laceration healing, no signs of hematoma [id number] today Bonding well 07/27/2018 day two well Voiding and passing gas Laceration healing, no signs of hematoma [id number]-[id number], taking iron Bonding well - Plan Plan:: 27 year old 39 4/7 weeks induction per patient request, ripe cervica, past history of traumatic FHT baseline 150, Cat one strip /-1 50 mcg miso placed at 0815 maybe up and about will reassess at noon plan for vaginal delivery 07/25/18 routine post care cbc at 1000 this morning iron supplement ordered sitz bath later support 48 hour stay, GBS positive 07/26/2018 Continue routine care Continue iron supplement and pericare products Continue to encourage and support Will discharge home tomorrow 07/27/2018 Continue routine care Continue iron supplement and pericare products Continue to encourage and support Discharge home today To see me in clinic for visit in six weeks
[2018-07-27] MEDS: Ferrous Sulfate 325 MG Tab PO SCH (10:25)
[2018-07-27 10:28] VITALS: BP 114/57
== END 2018-07-27 11:10 | disposition home or self-care (01) | DRG 806 ==
LOC: JP.OB 06:43 → OBSVTOIN 07-25 03:20 → JP.MS 07-25 03:30
PROVIDERS: ADMIT Nurse Practitioner Family; ATTEND Nurse Practitioner Family
PROC: 00HU33Z Insertion of Infusion Device into Spinal Canal, Percutaneous Approach (ICD-10-PCS; 2018-07-24)
PROC: 10E0XZZ Delivery of Products of Conception, External Approach (ICD-10-PCS; principal; 2018-07-25)
PROC: 0KQM0ZZ Repair Perineum Muscle, Open Approach (ICD-10-PCS; 2018-07-25)
PROC: 10D17Z9 Manual Extraction of Products of Conception, Retained, Via Natural or Artificial Opening (ICD-10-PCS; 2018-07-25)
PROC: 3E033VJ Introduction of Other Hormone into Peripheral Vein, Percutaneous Approach (ICD-10-PCS; 2018-07-25)
PROC: 0W8NXZZ Division of Female Perineum, External Approach (ICD-10-PCS; 2018-07-25)
DX: O99.824 Streptococcus B carrier state complicating childbirth (principal); D62 Acute posthemorrhagic anemia; Z37.0 Single live birth; O99.334 Smoking (tobacco) complicating childbirth; O36.60X0 Maternal care for excessive fetal growth, unspecified trimester, not applicable or unspecified; O70.1 Second degree perineal laceration during delivery; Z3A.39 39 weeks gestation of pregnancy; O72.0 Third-stage hemorrhage; Z88.1 Allergy status to other antibiotic agents; O90.81 Anemia of the puerperium
CPT/HCPCS: 36415; 51702; 59409; 80305-QW; 81001; 85025; 85027; 86850; 86900; 86901; 86920; 86922; 88307; A9270-GY; J2210; J2540; J2590; J2795; J7030; J7050

== ENCOUNTER 2019-04-28 14:04 | Emergency (ER) | payer MEDICAID ==
[2019-04-28 14:18] VITALS: BP 131/77; PULSE 83
--- NOTE | 2019-04-28 15:05 | EDM.PDOC ---
ED HPI GENERAL MEDICAL PROBLEM - General Chief Complaint: Gastrointestinal Problem Stated Complaint: VOMITING, SOB Time Seen by Provider: 04/28/19 15:05 Source of Information: Reports: Patient History Limitations: Reports: No Limitations - History of Present Illness INITIAL COMMENTS - FREE TEXT/NARRATIVE: pt was sick last nite and was not able to cont to work. Onset: Other ( started last nite. 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: - Infectious Disease History Infectious Disease History: Reports: Chicken Pox - Past Surgical History GI Surgical History: Reports: Cholecystectomy Social & Family History - Family History Family Medical History: Unobtainable Cardiac: Reports: Bypass, Heart Failure, [place], Stent Psychiatric: Reports: Bipolar, Depression, Suicide Attempt - Tobacco Use Smoking Status *Q: Current Every Day Smoker Years of Tobacco use: 7 Packs/Tins Daily: 0.5 - Caffeine Use Caffeine Use: Reports: Coffee, Soda - Living Situation & Occupation Living situation: Reports: Single Occupation: Employed ED ROS GENERAL - Review of Systems Review Of Systems: See Below Constitutional: Reports: Malaise, Weakness HEENT: Reports: Other ( general body aches and a cough) Respiratory: Reports: Cough Cardiovascular: Reports: No Symptoms Endocrine: Reports: No Symptoms GI/Abdominal: Reports: Vomiting, Other (pt vomited at work last nite. ) : Reports: No Symptoms Musculoskeletal: Reports: No Symptoms, Muscle Pain Skin: Reports: No Symptoms ED EXAM, GI/ABD - Physical Exam Exam: See Below Text/Narrative:: pt arrived with a history of vomiting at work last nit 3-4 times. She is not so nauseated at this time. She does not have abdomanal pain. Exam Limited By: No Limitations General Appearance: Alert, No Apparent Distress, Anxious Ears: Normal TMs Nose: Normal Inspection Throat/Mouth: Other (mild redness in the throat. ) Head: Atraumatic Neck: Normal Inspection Respiratory/Chest: No Respiratory Distress Cardiovascular: Regular Rate, Rhythm GI/Abdominal Exam: Soft, Non-Tender (Female) Exam: Deferred Rectal (Female) Exam: Deferred Back Exam: Normal Inspection Extremities: Normal Inspection Neurological: Alert, Oriented, Normal Cognition Course - Vital Signs Last Recorded V/S: Last Vital Signs Temp 36.3 C 04/28/19 14:22 Pulse 83 04/28/19 14:22 Resp 16 04/28/19 14:22 BP 131/77 04/28/19 14:22 Pulse Ox 100 04/28/19 14:22 - Orders/Labs/Meds Labs: Laboratory Tests 04/28/19 Range/Units 15:03 WBC 8.0 (4.5-11.0) K/uL RBC 5.12 (3.30-5.50) M/uL Hgb 14.2 D (12.0-15.0) g/dL Hct 44.7 (36.0-48.0) % MCV 87 (80-98) fL MCH 28 (27-31) pg MCHC 32 (32-36) % Plt Count 186 (150-400) K/uL Neut % (Auto) 84 H (36-66) % Lymph % (Auto) 7 L (24-44) % [place] % (Auto) 8 H (2-6) % Eos % (Auto) 1 L (2-4) % Baso % (Auto) 0 (0-1) % - Re-Assessments/Exams Free Text/Narrative Re-Assessment/Exam: 04/28/19 16:13 pt had a neg strept, positive influ b, and a normal wbc. Departure - Departure Time of Disposition: 16:14 Disposition: Home, Self-Care 01 Condition: Fair Clinical Impression: Influenza B - Discharge Information Instructions: Influenza, Adult, [id number] Referrals: PCP,None [Primary Care Provider] - Forms: ED Department Discharge Care Plan Goals: clear liquid diet, zoforan if further nausea, tamaflu 75 1 tab bid. rtc if problems. Sepsis Event Note - Evaluation Sepsis Screening Result: No Definite Risk - Focused Exam Date Exam was Performed: 04/29/19 Time Exam was Performed: 07:46
== END 2019-04-28 16:47 | disposition home or self-care (01) ==
LOC: JP.ED 14:04
DX: J10.1 Influenza due to other identified influenza virus with other respiratory manifestations (principal); F17.210 Nicotine dependence, cigarettes, uncomplicated; Z88.1 Allergy status to other antibiotic agents
CPT/HCPCS: 36415; 85025; 87804; 87804-59; 87880-QW; 99284

== ENCOUNTER 2021-01-31 20:50 | Emergency (ER) | payer MEDICAID ==
[2021-01-31 21:33] VITALS: BP 120/70; PULSE 69
--- NOTE | 2021-01-31 22:34 | EDM.PDOC ---
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 She took a minute to sit down and recover. This lasted several minutes and she did not completely go out. She had some abdominal pain in the right lower quadrant at the time. She states that after the initial episode she had several other episodes but the abdominal pain seemed to worsen. Although she has nausea, she does not have any vomiting. She has had near syncopal episodes before. She also has a history of significant problems with d ehydration during her last . She has not had any fever or chills, cough, sore throat, urinary symptoms, diarrhea or constipation. She states that she drinks 4 to 6 glasses of water a day. 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: - Infectious Disease History Infectious Disease History: Reports: Chicken Pox - Past Surgical History GI Surgical History: Reports: Cholecystectomy Social & Family History - Family History Family Medical History: Unobtainable Cardiac: Reports: Bypass, Heart Failure, [place], Stent Psychiatric: Reports: Bipolar, Depression, Suicide Attempt - Tobacco Use Tobacco Use Status *Q: Current Every Day Tobacco User Years of Tobacco use: 10 Packs/Tins Daily: 0.5 - Caffeine Use Caffeine Use: Reports: Coffee, Soda - Recreational Drug Use Recreational Drug Use: No - Living Situation & Occupation Living situation: Reports: Single Occupation: Employed ED ROS GENERAL - Review of Systems Review Of Systems: See Below Constitutional: Reports: Diaphoresis (Diaphoresis earlier today when she had the near syncopal episode) HEENT: Reports: No Symptoms Respiratory: Reports: No Symptoms Cardiovascular: Reports: No Symptoms Endocrine: Reports: No Symptoms GI/Abdominal: Reports: Abdominal Pain (Lateral lower abdominal pain radiating to the pelvis), Nausea. Denies: Constipation, Diarrhea, Vomiting : Reports: No Symptoms, Pain (Bilateral lower abdominal pain radiating to the pelvis). Denies: Frequency, Urgency Musculoskeletal: Reports: No Symptoms Skin: Reports: No Symptoms Neurological: Reports: No Symptoms Psychiatric: Reports: No Symptoms Hematologic/Lymphatic: Reports: No Symptoms Immunologic: Reports: No Symptoms ED EXAM - Physical Exam Exam: See Below Exam Limited By: No Limitations General Appearance: Alert, No Apparent Distress Head: Normocephalic Respiratory/Chest: No Respiratory Distress, Lungs Clear, Normal Breath Sounds Cardiovascular: Normal Peripheral Pulses, Regular Rate, Rhythm, No Murmur GI/Abdominal Exam: Normal Bowel Sounds, Soft, Non-Tender, Other (Tympany to percussion throughout the abdomen). No: Guarding, Rebound Back Exam: Normal Inspection Neurological: Alert, Oriented, Normal Cognition, No Motor/Sensory Deficits ED ULTRASOUND - Pelvic Indication: evaluation for IUP Exam type: focused transabdominal pelvic US Findings: IUP (Gestational sac seen in the uterus) Impression: IUP w/o confirmed heartbeat Images archived: No Course - Vital Signs Last Recorded V/S: Last Vital Signs Temp 36.8 C 01/31/21 21:25 Pulse 69 01/31/21 21:25 Resp 16 01/31/21 21:25 BP 120/70 01/31/21 21:25 Pulse Ox 99 01/31/21 21:25 - Orders/Labs/Meds Orders: Active Orders 24 hr Category Date Time Status HCG QUANTITATIVE [CHEM] Stat Lab 01/31/21 21:37 Received Labs: Laboratory Tests 01/31/21 Range/Units 21:22 Urine Color Yellow (YELLOW) Urine Appearance Slightly cloudy A (CLEAR) Urine pH 5.5 (5.0-8.0) Ur Specific [place] 1.010 (1.008-1.030) Urine Protein Negative (NEGATIVE) mg/dL Urine Glucose (UA) Negative (NEGATIVE) mg/dL Urine Ketones Negative (NEGATIVE) mg/dL Urine Occult Blood Negative (NEGATIVE) Urine Nitrite Negative (NEGATIVE) Urine Bilirubin Negative (NEGATIVE) Urine Urobilinogen 0.2 (0.2-1.0) EU/dL Ur Leukocyte Esterase Small H (NEGATIVE) Urine RBC Not seen (0-5) Urine WBC 0-5 (0-5) Ur Epithelial Cells Few Amorphous Sediment Not seen Urine Bacteria Not seen Urine Mucus Not seen - Re-Assessments/Exams Free Text/Narrative Re-Assessment/Exam: 01/31/21 22:44 urinalysis was unremarkable. Beta-hCG quantitative is 8836 which would put her between 4 and 5 weeks. There is no free fluid in the pelvis. By dates she is between 5 and 6 weeks which would be consistent with her beta-hCG quantitative. I do believe that the pain that she is experiencing is more gastrointestinal in nature. I recommend that she try one of the simethicone- based medications like Sarahi, Di-Gel, Gas-X to reduce the chronic gas. I did encourage her to increase fluid intake although there is no sign for dehydration at this time. I believe she is suitable for discharge with follow-up with her primary care provider for continued OB care. Occasions return to the ED were discussed. Departure - Departure Time of Disposition: 22:46 Disposition: Home, Self-Care 01 Clinical Impression: Lower abdominal pain, First trimester - Discharge Information Instructions: Abdominal Pain During , [id number], First Trimester of Referrals: PCP,None [Primary Care Provider] - Care Plan Goals: The work-up today suggest that your pain is coming from intestinal gas. I do recommend you try one of the simethicone-based medications like Maalox, Sarahi, Gas-X, or Di-Gel to help break up the gas to see if this relieves her symptoms. Your beta-hCG quantitative was 8836 which would put you between 4 and 5 weeks. This is consistent with what I am calculating with a gestation sac. Follow-up with your health care provider concerning ongoing care for your . Return to the ED should you experience any acute bleeding or worsening of symptoms. Sepsis Event Note (ED) - Evaluation Sepsis Screening Result: No Definite Risk - Focused Exam Vital Signs: Vital Signs Temp Pulse Resp BP Pulse Ox 01/31/21 21:25 36.8 C 69 16 120/70 99 - Problem List & Annotations (1) Lower abdominal pain SNOMED Code(s): 45840191 Code(s): R10.30 - LOWER ABDOMINAL PAIN, UNSPECIFIED Status: Acute Priority: Medium Current Visit: Yes (2) First trimester SNOMED Code(s): 98054555 Code(s): Z34.91 - ENCNTR FOR SUPRVSN OF NORMAL PREG, UNSP, FIRST TRIMESTER Status: Acute Priority: Medium Current Visit: Yes - Problem List Review Problem List Initiated/Reviewed/Updated: Yes - My Orders Last 24 Hours: My Active Orders 01/31/21 21:37 HCG QUANTITATIVE [CHEM] Stat - Assessment/Plan Last 24 Hours: My Active Orders 01/31/21 21:37 HCG QUANTITATIVE [CHEM] Stat
== END 2021-01-31 22:59 | disposition home or self-care (01) ==
LOC: JP.ED 20:50
DX: O99.891 Other specified diseases and conditions complicating pregnancy (principal); R10.31 Right lower quadrant pain; R10.32 Left lower quadrant pain; Z72.0 Tobacco use; Z3A.01 Less than 8 weeks gestation of pregnancy; Z88.1 Allergy status to other antibiotic agents
CPT/HCPCS: 36415; 81001; 84702; 99284

== ENCOUNTER 2021-02-14 14:48 | Emergency (ER) | payer MEDICAID ==
[2021-02-14 15:43] VITALS: BP 146/71; PULSE 63
--- NOTE | 2021-02-14 16:01 | EDM.PDOC ---
ED HPI GENERAL MEDICAL PROBLEM - General Chief Complaint: General Stated Complaint: NO TASTE,NO SMELL,BODY ACHES,CHILLS,HEADACHE Time Seen by Provider: 02/14/21 15:35 Source of Information: Reports: Patient History Limitations: Reports: No Limitations - History of Present Illness INITIAL COMMENTS - FREE TEXT/NARRATIVE: 30-year-old female in with generalized body aches, nasal congestion, runny nose, mild chills and fever as well as loss of taste and smell over the past 24 hours. She has been ill for the last 3 or 4 days. She is not vaccinated for Covid and has been exposed. No shortness of breath, no significant cough. She is also 5 months gestation . Onset: Gradual (Symptoms have gradually worsened over the past 4 days) Associated Symptoms: Reports: Fever/Chills, Headaches, Malaise, Other (Nasal congestion) - Related Data Allergies Allergy/AdvReac Type Severity Reaction Status Date / Time azithromycin [From Zithromax] Allergy Severe Other Verified 02/14/21 15:44 Home Meds: Home Meds NK [No Known Home Meds] 04/28/19 [History] Past Medical History - Past Health History Medical/Surgical History: Denies Medical/Surgical History [employer] History: Reports: - Infectious Disease History Infectious Disease History: Reports: Chicken Pox - Past Surgical History GI Surgical History: Reports: Cholecystectomy Social & Family History - Family History Family Medical History: Unobtainable Cardiac: Reports: Bypass, Heart Failure, [place], Stent Psychiatric: Reports: Bipolar, Depression, Suicide Attempt - Tobacco Use Tobacco Use Status *Q: Former Tobacco User Used Tobacco, but Quit: Yes Month/Year Tobacco Last Used: 02/12 - Caffeine Use Caffeine Use: Reports: None - Recreational Drug Use Recreational Drug Use: No - Living Situation & Occupation Living situation: Reports: Single Occupation: Employed ED ROS GENERAL - Review of Systems Review Of Systems: See Below Constitutional: Reports: Fever, Chills, Malaise HEENT: Reports: Rhinitis, Other (Loss of sense of smell and taste over the past 24 hours) Respiratory: Denies: Shortness of Breath, Cough Cardiovascular: Denies: Chest Pain GI/Abdominal: Reports: Decreased Appetite. Denies: Nausea, Vomiting Skin: Reports: No Symptoms Neurological: Reports: Dizziness, Headache. Denies: Weakness Psychiatric: Reports: No Symptoms ED EXAM, GENERAL - Physical Exam Exam: See Below Exam Limited By: No Limitations General Appearance: Alert, No Apparent Distress Eye Exam: Bilateral Eye: Normal Inspection Nose: Clear Rhinorrhea Neck: No: Lymphadenopathy (R), Lymphadenopathy (L) Respiratory/Chest: No Respiratory Distress, Lungs Clear Cardiovascular: Regular Rate, Rhythm. No: Tachycardia Neurological: Alert, Oriented, No Motor/Sensory Deficits Psychiatric: Normal Affect, Normal Mood Skin Exam: Warm, Dry Course - Vital Signs Last Recorded V/S: Last Vital Signs Temp 97.5 F 02/14/21 15:41 Pulse 63 02/14/21 15:41 Resp 18 02/14/21 15:41 BP 146/71 H 02/14/21 15:41 Pulse Ox 100 02/14/21 15:41 - Orders/Labs/Meds Orders: Active Orders 24 hr Category Date Time Status COMPREHENSIVE METABOLIC PN,CMP [CHEM] Stat Lab 02/14/21 16:45 Received Labs: Laboratory Tests 02/14/21 02/14/21 02/14/21 Range/Units 15:45 16:33 16:33 WBC (4.5-11.0) K/uL RBC (3.30-5.50) M/uL Hgb (12.0-15.0) g/dL Hct (36.0-48.0) % MCV (80-98) fL MCH (27-31) pg MCHC (32-36) % Plt Count (150-400) K/uL Neut % (Auto) (36-66) % Lymph % (Auto) (24-44) % Branch % (Auto) (2-6) % Eos % (Auto) (2-4) % Baso % (Auto) (0-1) % Urine HCG, Qual Negative Urine Opiates Screen Negative (NEGATIVE) Ur Oxycodone Screen Negative (NEGATIVE) Urine Methadone Screen Negative (NEGATIVE) Ur Propoxyphene Screen Negative (NEGATIVE) Ur Barbiturates Screen Negative (NEGATIVE) Ur Tricyclics Screen Negative (NEGATIVE) Ur Phencyclidine Scrn Negative (NEGATIVE) Ur Amphetamine Screen Presumptive positive H (NEGATIVE) U Methamphetamines Scrn Negative (NEGATIVE) Urine MDMA Screen Negative (NEGATIVE) U Benzodiazepines Scrn Presumptive positive H (NEGATIVE) U Cocaine Metab Screen Negative (NEGATIVE) U Marijuana (THC) Screen Presumptive positive H (NEGATIVE) SARS-CoV-2 RNA ([place]EL[place]IS) Positive H (NEGATIVE) 02/14/21 Range/Units 16:45 WBC 5.4 (4.5-11.0) K/uL RBC 4.48 (3.30-5.50) M/uL Hgb 13.2 (12.0-15.0) g/dL Hct 38.5 (36.0-48.0) % MCV 86 (80-98) fL MCH 30 (27-31) pg MCHC 34 (32-36) % Plt Count 149 L (150-400) K/uL Neut % (Auto) 68.3 H (36-66) % Lymph % (Auto) 16.2 L (24-44) % Branch % (Auto) 13.1 H (2-6) % Eos % (Auto) 1.8 L (2-4) % Baso % (Auto) 0.6 (0-1) % Urine HCG, Qual Urine Opiates Screen (NEGATIVE) Ur Oxycodone Screen (NEGATIVE) Urine Methadone Screen (NEGATIVE) Ur Propoxyphene Screen (NEGATIVE) Ur Barbiturates Screen (NEGATIVE) Ur Tricyclics Screen (NEGATIVE) Ur Phencyclidine Scrn (NEGATIVE) Ur Amphetamine Screen (NEGATIVE) U Methamphetamines Scrn (NEGATIVE) Urine MDMA Screen (NEGATIVE) U Benzodiazepines Scrn (NEGATIVE) U Cocaine Metab Screen (NEGATIVE) U Marijuana (THC) Screen (NEGATIVE) SARS-CoV-2 RNA (BEL[place]IS) (NEGATIVE) - Re-Assessments/Exams Free Text/Narrative Re-Assessment/Exam: 02/14/21 16:01 A Covid test was obtained. 02/14/21 16:45 Covid was positive, patient was encouraged to rest the next couple of days and consider monoclonal antibody therapy. Departure - Departure Time of Disposition: 16:59 Disposition: Home, Self-Care 01 Clinical Impression: COVID-19 - Discharge Information Instructions: COVID-19 Referrals: PCP,None [Primary Care Provider] - Forms: ED Department Discharge Care Plan Goals: Rest the next few days, Tylenol for any headache or body discomfort and consider monoclonal antibody therapy if you feel you are worsening. Sepsis Event Note (ED) - Evaluation Sepsis Screening Result: No Definite Risk - Focused Exam Vital Signs: Vital Signs Temp Pulse Resp BP Pulse Ox 02/14/21 15:41 97.5 F 63 18 146/71 H 100 - My Orders Last 24 Hours: My Active Orders 02/14/21 16:45 COMPREHENSIVE METABOLIC PN,CMP [CHEM] Stat - Assessment/Plan Last 24 Hours: My Active Orders 02/14/21 16:45 COMPREHENSIVE METABOLIC PN,CMP [CHEM] Stat
== END 2021-02-14 16:59 | disposition home or self-care (01) ==
LOC: JP.ED 14:48
DX: U07.1 COVID-19 (principal); Z88.1 Allergy status to other antibiotic agents; Z87.891 Personal history of nicotine dependence
CPT/HCPCS: 36415; 80053; 85025; 99283; U0002

== ENCOUNTER 2021-09-28 06:48 | Inpatient (IN) | payer MEDICAID ==
[2021-09-28] MEDS ORDERED: Misoprostol 50 MCG (1/2 of 100 MCG) Tab VAG ONE ×2 (07:30→12:02)
[2021-09-28] MEDS ORDERED: Sodium Chloride 0.9% 10 ML Syringe FLUSH PRN ×2 (07:56→13:20)
[2021-09-28 08:04] LABS: CORONAVIRUS COVID-19 NAA NEGATIVE (NEGATIVE)
[2021-09-28] MEDS ORDERED: Lactated Ringers 1,000 ML IV ONE (13:19)
[2021-09-28] MEDS ORDERED: diphenhydrAMINE 50 MG/ML SDV IVPUSH PRN ×2 (13:20)
[2021-09-28] MEDS ORDERED: Naloxone 0.4 MG/ML SDV IVPUSH PRN (13:20)
[2021-09-28] MEDS ORDERED: ePHEDrine 50 MG/ML SDV IVPUSH PRN (13:20)
[2021-09-28] MEDS ORDERED: Ropivacaine 100 ML ONE (14:04)
[2021-09-28] MEDS ORDERED: Ropivacaine 200 MG in Premix Bag 1 BAG EPIDUR SCH (14:15)
[2021-09-28] MEDS: Lactated Ringers 1,000 ML IV SCH ×2 (14:28→18:51)
[2021-09-28] MEDS ORDERED: Lactated Ringers 500 ML IV ONE (17:33)
[2021-09-28] MEDS ORDERED: Carboprost Tromethamine 250 MCG/1 ML Amp ONE (20:07)
[2021-09-28] MEDS ORDERED: Methylergonovine 0.2 MG/1 ML Amp ONE (20:07)
[2021-09-28] MEDS ORDERED: Misoprostol 200 MCG Tab ONE (20:07)
[2021-09-28] MEDS ORDERED: Misoprostol 200 MCG Tab PO ONE (20:10)
[2021-09-28] MEDS ORDERED: Sodium Chloride 0.9% 50 ML ONE (20:16)
[2021-09-28] MEDS ORDERED: Tranexamic Acid 1,000 MG in Sodium Chloride 0.9% 50 ML IV ONE (20:30)
[2021-09-28] MEDS ORDERED: Ondansetron 4 MG Tab.DIS PO ONE (20:54)
[2021-09-28] MEDS ORDERED: Ondansetron 4 MG Tab.DIS ONE (20:59)
[2021-09-28] MEDS ORDERED: Benzocaine 20% Top Spray 56 GM Bottle TOP ONE (20:59)
[2021-09-28] MEDS ORDERED: Witch Hazel Medicated Pads 100/Jar TOP ONE (20:59)
[2021-09-28] MEDS ORDERED: Lanolin 100% Cream 40 GM Tube TOP ONE (20:59)
[2021-09-28] MEDS ORDERED: Hydrocortisone 2.5% Crm 30 GM Tube TOP PRN (20:59)
[2021-09-28] MEDS ORDERED: Carboprost Tromethamine 250 MCG/1 ML Amp IM ONE (21:07)
[2021-09-28] MEDS ORDERED: Acetaminophen 325 MG Tab, 50 Tab Bulk Bottle PO PRN (21:08)
[2021-09-28] MEDS ORDERED: Ibuprofen 200 MG Tab, 24 Tab Bulk Bottle PO PRN (21:08)
[2021-09-29] MEDS ORDERED: Benzocaine 20% Top Spray 56 GM Bottle ONE (00:37)
[2021-09-29] MEDS ORDERED: Lanolin 100% Cream 40 GM Tube TOP ONE (00:37)
[2021-09-29] MEDS ORDERED: Witch Hazel Medicated Pads 100/Jar TOP ONE (00:37)
[2021-09-30 08:01] VITALS: BP 123/65; PULSE 50
== END 2021-09-30 11:52 | disposition home or self-care (01) | DRG 806 ==
LOC: JP.OBCHECK 06:48 → JP.OB 06:51 → JP.OBCHECK 07:56 → OBSVTOIN 19:30 → JP.MS 09-29 01:33
PROVIDERS: ADMIT Nurse Practitioner Family; ATTEND Nurse Practitioner Family
PROC: 10E0XZZ Delivery of Products of Conception, External Approach (ICD-10-PCS; principal; 2021-09-28)
PROC: 0KQM0ZZ Repair Perineum Muscle, Open Approach (ICD-10-PCS; 2021-09-28)
PROC: 10D17Z9 Manual Extraction of Products of Conception, Retained, Via Natural or Artificial Opening (ICD-10-PCS; 2021-09-28)
PROC: 3E0P7VZ Introduction of Hormone into Female Reproductive, Via Natural or Artificial Opening (ICD-10-PCS; 2021-09-28)
PROC: 3E0R3BZ Introduction of Anesthetic Agent into Spinal Canal, Percutaneous Approach (ICD-10-PCS; 2021-09-28)
DX: O48.0 Post-term pregnancy (principal); O72.0 Third-stage hemorrhage; Z37.0 Single live birth; Z3A.40 40 weeks gestation of pregnancy; O70.1 Second degree perineal laceration during delivery; O69.81X0 Labor and delivery complicated by cord around neck, without compression, not applicable or unspecified; Z20.822 Contact with and (suspected) exposure to COVID-19; Z90.49 Acquired absence of other specified parts of digestive tract
CPT/HCPCS: 0241U; 36415; 51701; 80305-QW; 81001; 85025; 85027; A9270-GY; J2590; J2795; J3490; J7120; Q0162